=== PATIENT | male | born 1945 | race Caucasian/White ===

== ENCOUNTER 2017-06-16 16:07 | Inpatient (IN) ==
[2017-06-16] MEDS ORDERED: HYDROmorphone 2 MG/1 ML VIAL ONE (16:12)
[2017-06-16] MEDS ORDERED: ONDANSETRON 4 MG/2 ML VIAL IV STA (16:23)
[2017-06-16] MEDS ORDERED: ONDANSETRON 4 MG/2 ML VIAL ONE (16:30)
[2017-06-16] MEDS: HYDROmorphone 2 MG/1 ML VIAL IV PRN ×3 (16:34→16:38)
[2017-06-16 16:39] LABS: Apearance,Urine CLEAR (Clear); Bilirubin,Urine Negative (Negative); Blood, Urine Moderate mg/dL (Negative); Glucose,Urine (UA) 50 mg/dL (Negative); Ketones,Urine Negative (Negative); Mucus,Urine Occasional /LPF (Occasional); Nitrite,Urine Negative (Negative); Protein,Urine Negative; RBC,Urine 1 /HPF (0-4); Urine Color Straw (Yellow); Urine Specific Gravity 1.009 (1.001-1.035); Urine Urobilinogen < 2.0 EU/DL (0.2-1.0)
[2017-06-16 16:48] LABS: Basophils % 0.3 % (0.0-0.8); Eosinophils # 0.1 10*3/uL (0.0-0.87); Eosinophils % 0.9 % (0.00-10.9); Hematocrit 45.1 VOL% (42.0-52.0); Hemoglobin 15.7 GM/DL (14.0-18.0); Immature Granulocytes % 0.4 %; Immature Granulocytes Absolute 0.05 #; Lymphocytes % 18.1 % (21.2-54.2); Mean Corpuscular HGB Conc 34.8 GM/DL (32-36); Mean Corpuscular Hemoglobin 30 PG (27-34); Mean Corpuscular Volume 86.4 FL (87-102); Mean Platelet Volume 9.8 FL (9.6-12.0); Monocytes # 0.7 10*3/uL (0.11-0.8); Monocytes % 6.3 % (1.7-12.7); Neutrophils # 8.3 10*3/uL (1.4-7.4); Platelet Count 200 T/CUMM (130-400); Red Blood Count 5.22 MC/CUMM (3.8-5.5); Red Cell Distribution Width 14.1 % (9.3-17.3); White Blood Count 11.2 T/CUMM (4-12)
--- NOTE | 2017-06-16 16:58 | EKG Report ---
Stationary ECG Study [facility] ER Test Date: 06/16/2017 4:57:27 PM Pat Name: ADRIENNE FAROOQ Department: Room: 220 Gender: M Blog Writer: : 1945 Requested by: Julio Khan Order Number: [id number] Reading MD: MARIA ESTHER RENEE Intervals [place] Rate: 75 P: 59 KS: 189 QRS: 267 QRSD: 148 T: 46 QT: 421 QTc: 450 Interpretive Statements SINUS RHYTHM WITH OCCASIONAL VENTRICULAR PREMATURE COMPLEXES WITH OCCASIONAL SUPRAVENTRICULAR PREMATURE COMPLEXES MARKED RIGHT AXIS DEVIATION RIGHT BUNDLE BRANCH BLOCK Electronically Signed On 06-18-17 07:27:43 CDT by MARIA ESTHER RENEE [email or web address]
[2017-06-16 17:06] LABS: Albumin 3.1 G/DL (3.4-5.0); Bilirubin,Total 0.8 MG/DL (0.2-1.0); Calcium 8.8 MG/DL (8.5-10.1); Osmolality,Calculated 288.1 MOS/KG (273-304); Potassium 3.5 MMOL/L (3.5-5.1); Total Protein 6.2 G/DL (6.4-8.3)
[2017-06-16 17:08] LABS: Lactic Acid 2.4 MMOL/L (0.4-2.0)
--- NOTE | 2017-06-16 18:17 | Emergency Department Note ---
Ngozi Gonzáles Brittany, am scribing for, and in the presence of, Kwesi Lozoya MD 16:25. Darell Gonzáles Doug C, MD, personally performed the services described in this documentation, ascribed by Alyssa Melvin in my presence, and it is both accurate and complete . Arrival - Arrival Chief Complaint: Abdominal / Flank Pain Stated Complaint: abd pain ED Nursing Triage Note: middle abd pain that sunday with n/v. Mode of Arrival: Stretcher Limitations: No Limitations Source: Patient - History of Present Illness HPI Narrative: Patient 72-year-old white male presents emergency room complaining of severe lower abdominal pain that started this morning. Patient does have a prior history of kidney stones but states this is different from his prior kidney stones. Patient states he has been having some abdominal pain off and on since Sunday with nausea and vomiting but the pain this morning became intense. Patient's not had any fever or chills and he denies any urinary symptoms. He has not noticed any hematuria and has not had any diarrhea or blood in his stool. It is very difficult to get a history from the patient and he was constantly screaming when he arrived to the emergency room. Onset (ago): day(s) (Started 5 days ago) Consistency: constant Severity: moderate Allergies/Adverse Reactions: Allergies Allergy/AdvReac Type Severity Reaction Status Date / Time No Known Allergies Allergy Unverified 06/14/17 11:05 Home Medications: Home Medications Medication Instructions Recorded Confirmed Type Amitriptyline [Elavil] 25 mg PO BEDTIME 03/04/17 06/16/17 History Aspirin EC Tab 81 mg PO DAILY 03/04/17 06/16/17 History Cholecalciferol (Vitamin D3) 2,000 unit PO DAILY 03/04/17 06/16/17 History [Vitamin D3] Cilostazol 50 mg PO BID 03/04/17 06/16/17 History Esomeprazole Magnesium 40 mg PO DAILY 03/04/17 06/16/17 History [Esomeprazole] Glimepiride 4 mg PO DAILY 03/04/17 06/16/17 History Irbesartan 150 mg PO DAILY 03/04/17 06/16/17 History NIFEdipine [Nifedipine ER] 30 mg PO BEDTIME 03/04/17 06/16/17 History Thyroid [[place] Thyroid] 60 mg PO DAILY 03/04/17 06/16/17 History sitaGLIPtin [Januvia] 100 mg PO DAILY 03/04/17 06/16/17 History Hydrocortisone (Anusol-Hc) Sup 25 mg RECTAL BID #12 supp 06/14/17 06/16/17 Rx [ANUSOL HC SUPP (hydrocortisone)] Metoprolol Tartrate 50 mg PO BID #60 tablet 06/14/17 06/16/17 Rx Review of System - Review of System 12 point system: reviewed and no additional remarkable complaints except as stated - Review of System Constitutional: Absent: chills, fever Eyes: Absent: pain, other Cardiovascular: Absent: chest pain, palpitations Gastrointestinal: Present: abdominal pain (Mid abdominal pain/ pain over the bladder ), nausea, vomiting Genitourinary male: Absent: urgency, dysuria, hematuria Musculoskeletal: Absent: back pain, neck pain Skin: Absent: rash, lesions Neurological: Absent: weakness, numbness Psychiatric: Absent: anxiety, depression Endocrine: Absent: fatigue Hematological/Lymphatic: Absent: easy bleeding, easy bruising Medical,Surgical,& Family Hx - Medical History Cardio: History of: CAD (Dr Elam), Hypertension, [place] Endocrine: History of: Diabetes Mellitus (NIDDM) Genitourinary: History of: Kidney Stones, Genitourinary Cancer (Prostate Dr Lozoya) Musculoskeletal: History of: Back/Neck Problems - Surgical History Cardiac Surgeries: Sugical HX of: Cardiac Catheterization (stent) Reproductive Surgeries: Surgical HX of;: Genitourinary Surgery (Cryo on Prostate ) Orthopedic Surgeries: Surgical HX of;: Spinal Surgery - Family History Family History: noncontributory - Social History Smoking Status: Current every day smoker Exam Vital Signs: Vital Signs Temperature 98.6 F 06/16/17 16:13 Pulse Rate 84 06/16/17 16:13 Respiratory Rate 28 H 06/16/17 16:13 Blood Pressure 180/125 06/16/17 16:13 O2 Sat by Pulse Oximetry 97 06/16/17 16:13 - General General appearance: alert, in distress (Patient screaming in discomfort) - Head Head exam: Present: atraumatic, normocephalic, normal inspection - Eye Eye exam: Present: normal appearance, PERRL, EOMI, other (Ectropion of left lower lid). Absent: scleral icterus, conjunctival injection, nystagmus, miosis , mydriasis, periorbital swelling, periorbital tenderness - ENT ENT exam: Present: normal exam, normal oropharynx, mucous membranes moist - Neck Neck exam: Present: normal inspection, full ROM, trachea midline. Absent: tenderness, meningismus, lymphadenopathy, thyromegaly - Chest Chest inspection: Present: normal inspection, symmetric chest wall rise. Absent : tenderness, rash, abscess - Respiratory Respiratory exam: Present: normal lung sounds bilaterally. Absent: prolonged expiratory phase, rales, respiratory distress, rhonchi, stridor, wheezes - Cardiovascular Cardiovascular exam: Present: regular rate, normal rhythm, normal heart sounds. Absent: murmur, rubs, gallop, clicks, JVD - Abdominal Exam Abdominal exam: Present: soft, distention (Bladder distention ), tenderness ( Tender over the bladder ), normal bowel sounds. Absent: guarding, rebound, rigidity - Rectal Exam Rectal exam: Present: deferred - Extremities Exam Extremities exam: Present: normal inspection, full ROM, normal capillary refill. Absent: tenderness, pedal edema, joint swelling, calf tenderness - Back Exam Back exam: Present: normal inspection, full ROM. Absent: tenderness, muscle spasm, rashes - Neurological Exam Neurological exam: Present: alert, oriented X3, CN II-XII intact. Absent: motor sensory deficit - Psychiatric Psychiatric exam: Present: normal affect, normal mood. Absent: depressed, agitated, anxious, flat affect, manic - Skin Skin exam: Present: warm, dry, intact, normal color. Absent: rash, cyanosis, diaphoresis, erythema, pallor, mottled Course Course Narrative: Patient's clinical history, physical findings, laboratory and CT findings were discussed with danial who is covering the hospitalist service. She will arrange for the patient to be seen in the emergency room and evaluate for admission Results - Labs CBC & BMP: 06/16/17 16:34 06/16/17 16:34 Lab Results: I have reviewed the patients labs - Diagnostic Findings Procedure: CT Abdomen and Pelvis: report reviewed by me (No ureterolithiasis seen. There is no evidence of obstruction or abdominal aortic dissection.) Disposition Clinical Impression: Continuous severe abdominal pain Case discussed with: patient Disposition: Still a Patient Condition: Guarded Time of Disposition: 18:17
--- NOTE | 2017-06-16 18:51 | CT Report ---
History: Severe lower abdominal pain. Intermittent nausea and vomiting Date: 06/16/2017 Study: CT abdomen and pelvis with IV contrast Comparison exam: Multiple studies, including the most recent noncontrast CT abdomen and pelvis of March 04, 2017 Technique: Spiral CT sections were obtained from the lung bases to the pubic symphysis following 100 mL Omnipaque [address] exam was performed using one or more of the following dose reduction techniques: Automated exposure control, adjustment of the mA and/or kV according to patient size, or use of iterative reconstruction technique. CT abdomen: There is some mild dependent atelectasis in the lower lungs. There is no gross pleural or pericardial effusion. There is mild diffuse fatty infiltration of the liver. There is a focal area of transient increased triangular enhancement inferiorly in the posterior segment of the right lobe the liver at 16 mm diameter. This was present on the September 14, 2016 contrast study and is unchanged. The spleen, pancreas, bile ducts, and fluid-filled gallbladder are unremarkable. There is a 4.1 cm left adrenal mass containing globules of fat density without change. There is bilateral renal excretion without hydronephrosis. There is no gross radiopaque renal or ureteral stone. There is no hydronephrosis. There are rounded low-density renal cysts associated with either kidney as before. These in general appear to be simple in nature. There is a class II F Bosniak cyst measuring 10 mm in the posterior lateral mid to lower right kidney. There is some mild ectasia of the abdominal aorta without james aneurysm. There is no evidence of pneumoperitoneum. There is some mild thickening of the wall of the descending and sigmoid colon in a region of numerous scattered diverticuli. Near the descending and sigmoid colon junction, there is slight increased haziness in the pericolonic fat. Low-grade diverticulitis is suspected. The appendix is identified and appears normal. There is no evidence of appendicitis. CT pelvis: A Castrejon catheter is positioned with its balloon in the lumen of urinary bladder. There are small fat-containing inguinal hernias bilaterally. There is mild to moderate lumbar spondylosis. Impression: There is evidence of low-grade diverticulitis of the left colon without abscess or perforation. No radiopaque renal or ureteral stone or definite acute process otherwise Bilateral renal cysts for which nonemergent follow-up renal ultrasound is recommended Stable left adrenal myelolipoma Transient focal area of increased enhancement in the right lobe of the liver without definite associated mass lesion, stable compared to the previous study. This may represent a Pawel PROCEDURE INTERPRETED AT [facility] DEPARTMENT OF RADIOLOGY Final Report Signed by: Dr. Ann-Marie Jolly
--- NOTE | 2017-06-16 19:09 | XRay Report ---
History: Dyspnea Date: 06/16/2017 Study: Chest x-ray AP portable Comparison exam: February 10, 2014 The cardiac silhouette is upper normal in size. There is no mediastinal mass. The pulmonary vasculature is not engorged. The lungs and pleural spaces are generally clear. Osseous structures are unremarkable except for some mild thoracic spondylosis. Impression: No acute cardiopulmonary process PROCEDURE INTERPRETED AT [facility] DEPARTMENT OF RADIOLOGY Final Report Signed by: Dr. Ann-Marie Jolly
--- NOTE | 2017-06-16 19:15 | Hospitalist History & Physical ---
Assessment and Plan (1) Continuous severe abdominal pain Status: Acute Assessment and plan: Admit patient to monitored bed. Pt. has history of kidney stones. Prn pain meds. Abd/pelv ct performed. No acute abd. Renal cysts found. Current Visit: Yes (2) Diabetes Status: Acute Assessment and plan: Accuchecks achs. SSI. Hgb A1c in am. Restart two of the oral agents. Current Visit: Yes (3) Hypertension Status: Chronic Assessment and plan: Restart home medications. Monitor closely Current Visit: No (4) Prostate cancer Status: Resolved Assessment and plan: Pt. seen by Dr. Lozoya. Current Visit: Yes History of Present Illness Chief complaint: Abdominal pain History of present illness: Mr. Velasquez is a 72 year old white male with a history of hypertension, CAD, ID with 2 stents, diabetes, kidney stones, gi bleeding, prostate cancer, and back/ neck problems that presented to the ED today for further evaluation of severe lower abdominal pain started this morning. Patient stated that he been having abdominal pain since Sunday. Pt. also reports nausea and vomiting in association with the pain. Pt.'s is present at the bedside and provides much of the history for the patient. Pt. denies fever, chills, or chest pain. Pt. states that he has not any problem voiding until this morning. Prior to that , pt had not noted any blood in urine. He did state he saw blood in stool on but that this is from a hemorrhoid. Pt.'s adds that they were seen in the ED on for n/v but was released with suppository. (Chart review after patient interview from 's admit reveals cardiology was consulted at that time for polymorphic PVCs. Pt. was to bulk picker monitor for further eval). In ED, pt was noted to be hypertensive with elevated lactic acid of 2.4. CT of abd/pel revealed low grade diverticulitis of left colon, bilateral renal cysts were also seen. Pt. will be admitted to the hospitalist service for further eval and treatment. Home Medications Medication Instructions Recorded Confirmed Type Amitriptyline [Elavil] 25 mg PO BEDTIME 03/04/17 06/16/17 History Aspirin EC Tab 81 mg PO DAILY 03/04/17 06/16/17 History Cholecalciferol (Vitamin D3) 2,000 unit PO DAILY 03/04/17 06/16/17 History [Vitamin D3] Cilostazol 50 mg PO BID 03/04/17 06/16/17 History Esomeprazole Magnesium 40 mg PO DAILY 03/04/17 06/16/17 History [Esomeprazole] Glimepiride 4 mg PO DAILY 03/04/17 06/16/17 History Irbesartan 150 mg PO DAILY 03/04/17 06/16/17 History NIFEdipine [Nifedipine ER] 30 mg PO BEDTIME 03/04/17 06/16/17 History Thyroid [[place] Thyroid] 60 mg PO DAILY 03/04/17 06/16/17 History sitaGLIPtin [Januvia] 100 mg PO DAILY 03/04/17 06/16/17 History Hydrocortisone (Anusol-Hc) Sup 25 mg RECTAL BID #12 supp 06/14/17 06/16/17 Rx [ANUSOL HC SUPP (hydrocortisone)] Metoprolol Tartrate 50 mg PO BID #60 tablet 06/14/17 06/16/17 Rx Allergies Allergy/AdvReac Type Severity Reaction Status Date / Time No Known Allergies Allergy Unverified 06/14/17 11:05 Medical,Surgical,& Family Hx - Medical History Cardio: History of: CAD (Dr Elam), Hypertension, [place] Endocrine: History of: Diabetes Mellitus (NIDDM) Genitourinary: History of: Kidney Stones, Genitourinary Cancer (Prostate Dr Lozoya) Musculoskeletal: History of: Back/Neck Problems - Surgical History Cardiac Surgeries: Sugical HX of: Cardiac Catheterization (stent) Reproductive Surgeries: Surgical HX of;: Genitourinary Surgery (Cryo on Prostate ) Orthopedic Surgeries: Surgical HX of;: Spinal Surgery - Social History Smoking Status: Current every day smoker Marital Status: Lives With:: Spouse Functional capacity: independent ambulation - Constitutional Constitutional: Absent: chills, fever(s) - EENT Eyes: Present: loss of vision Ears: Present: decreased hearing Nose, mouth and throat: Absent: headache(s) - Cardiovascular Cardiovascular: Absent: dyspnea, edema - Gastrointestinal Gastrointestinal: Present: abdominal pain, nausea, vomiting. Absent: change in bowel habits - Genitourinary Genitourinary: Present: difficulty urinating - Neurological Neurological: Absent: confusion, dizziness Exam - Constitutional Vitals: Period Temp Pulse Resp BP Sys/Javed Pulse Ox Last 24 Hr 98.6 F 84 28 180/125 97 General appearance: normal weight, no acute distress - Head Head exam: Present: normal inspection, normocephalic - Eye Eye exam: Present: EOMI, other (ectropion of left lower lid) Pupils: Present: CHERYL - Neck Neck exam: Present: normal inspection - Respiratory Respiratory exam: Present: clear to auscultation bilaterally. Absent: wheezes - Cardiovascular Cardiovascular exam: Present: regular rate and rhythm - GI/Abdominal GI/Abdominal exam: Present: normal bowel sounds, soft. Absent: tenderness - Extremities Exam Extremities exam: Present: normal capillary refill, full ROM. Absent: edema - Neurological Exam Neurological exam: Present: alert, oriented X3 - Psychiatric Psychiatric exam: Present: normal affect, normal mood - Skin Skin exam: Present: normal color, warm, dry Results - Labs CBC & BMP: 06/16/17 16:34 06/16/17 16:34 Lab Results: I have reviewed the past 24 hour labs
[2017-06-16] MEDS ORDERED: ACETAMINOPHEN 325 MG TABLET PO PRN (20:12)
[2017-06-16] MEDS ORDERED: ONDANSETRON 4 MG/2 ML VIAL IV PRN (20:12)
[2017-06-16] MEDS ORDERED: DEXTROSE 50% 25 GM/50 ML VIAL IV PRN (20:12)
[2017-06-16] MEDS ORDERED: GLUCAGON 1 MG VIAL IM PRN (20:12)
[2017-06-16] MEDS: MORPHINE 10 MG/1 ML VIAL IV PRN (20:35)
[2017-06-16] MEDS: SODIUM CHLORIDE 0.9% 1,000 ML IV SCH (21:25)
[2017-06-16] MEDS: INSULIN LISPRO 100 UNIT/ML SUBCUT SCH (21:53)
[2017-06-16] MEDS: METOPROLOL TARTRATE 50 MG TABLET PO SCH (21:53)
[2017-06-16] MEDS: CILOSTAZOL 50 MG TABLET PO SCH (21:53)
[2017-06-16] MEDS: AMITRIPTYLINE 25 MG TABLET PO SCH (21:53)
[2017-06-17] MEDS: MORPHINE 10 MG/1 ML VIAL IV PRN (00:59)
[2017-06-17 04:50] LABS: Basophils % 0.4 % (0.0-0.8); Eosinophils % 0.1 % (0.00-10.9); Hematocrit 52.1 VOL% (42.0-52.0); Immature Granulocytes % 0.3 %; Immature Granulocytes Absolute 0.03 #; Lymphocytes # 1.4 10*3/uL (1.4-4.0); Lymphocytes % 12.7 % (21.2-54.2); Mean Corpuscular HGB Conc 34.5 GM/DL (32-36); Mean Corpuscular Hemoglobin 30 PG (27-34); Mean Corpuscular Volume 86.5 FL (87-102); Mean Platelet Volume 9.6 FL (9.6-12.0); Monocytes # 0.9 10*3/uL (0.11-0.8); Monocytes % 8.4 % (1.7-12.7); Neutrophils # 8.7 10*3/uL (1.4-7.4); Neutrophils % 78.1 % (38.7-73.9); Platelet Count 200 T/CUMM (130-400); Red Blood Count 6.02 MC/CUMM (3.8-5.5); Red Cell Distribution Width 14.1 % (9.3-17.3); White Blood Count 11.1 T/CUMM (4-12)
[2017-06-17 05:30] LABS: Calcium 8.8 MG/DL (8.5-10.1); Magnesium 1.9 MG/DL (1.8-2.4); Osmolality,Calculated 284.4 MOS/KG (273-304); Potassium 3.8 MMOL/L (3.5-5.1); Risk Ratio 4.59; Thyroid Stimulating Hormone 1.56 uIU/ml (0.358-3.74); VLDL CHOLESTEROL 25.8 MG/DL
[2017-06-17] MEDS: SODIUM CHLORIDE 0.9% 1,000 ML IV SCH ×2 (07:37→08:32)
[2017-06-17] MEDS: PANTOPRAZOLE 40 MG TABLET PO SCH (08:07)
[2017-06-17] MEDS: CILOSTAZOL 50 MG TABLET PO SCH ×2 (08:07→21:27)
[2017-06-17] MEDS: THYROID 60 MG TABLET PO SCH (08:07)
[2017-06-17] MEDS: METOPROLOL TARTRATE 50 MG TABLET PO SCH ×2 (08:07→21:27)
[2017-06-17] MEDS: INSULIN LISPRO 100 UNIT/ML SUBCUT SCH ×4 (08:07→21:29)
[2017-06-17] MEDS: IRBESARTAN 150 MG TABLET PO SCH (08:07)
[2017-06-17] MEDS: sitaGLIPtin 100 MG TABLET PO SCH (08:07)
[2017-06-17] MEDS: GLIMEPIRIDE 4 MG TABLET PO SCH (08:07)
[2017-06-17] MEDS ORDERED: ASPIRIN EC 81 MG TABLET PO SCH (09:00)
--- NOTE | 2017-06-17 10:27 | Hospitalist Progress Note ---
Assessment and Plan (1) Continuous severe abdominal pain Status: Acute Assessment and plan: CT abd showed a evidence of low-grade diverticulitis of the left colon without abscess or perforation. Plan Continue with pain meds, anti emetics, IVF will start IV cipro and flagyl stool studies GI consult Current Visit: Yes (2) Bloody stool Status: Acute Assessment and plan: will hold aspirin for now monitor cbc GI consult Current Visit: Yes (3) Hypertension Status: Chronic Assessment and plan: stable Current Visit: No (4) Prostate cancer Status: Resolved Assessment and plan: Pt. seen by Dr. Lozoya. Current Visit: Yes (5) Diabetes Status: Acute Assessment and plan: 1c-6.6 continue with current regime Current Visit: Yes Hospitalist: Subjective Interval history: Patient was sleeping. Nursing staff reports that patient had a bout of bloody stool this am. Exam - Constitutional Vitals: Period Temp Pulse Resp BP Sys/Javed Pulse Ox Last 24 Hr 97 F-98.6 F 69-91 16-28 137-183/81-125 93-97 General appearance: no acute distress - Head Head exam: Present: normal inspection - Respiratory Respiratory exam: Present: clear to auscultation bilaterally - Cardiovascular Cardiovascular exam: Present: regular rate and rhythm - GI/Abdominal GI/Abdominal exam: Present: tenderness - Extremities Exam Extremities exam: Present: normal inspection Results - Labs CBC & BMP: 06/17/17 04:28 06/17/17 04:29 Lab Results: I have reviewed the past 24 hour labs
[2017-06-17] MEDS: CIPROFLOXACIN INJ 200 MG in PREMIX 1 EACH IV SCH (11:48)
[2017-06-17] MEDS: metroNIDAZOLE INJ 500 MG in PREMIX 1 EACH IV SCH ×2 (12:54→21:28)
--- NOTE | 2017-06-17 13:25 | Gastrointestinal Consult Note ---
Assessment and Plan - Time spent with patient Time spent with patient: Greater than 30 minutes (1) Colitis Status: Acute Current Visit: Yes (2) Bloody diarrhea Status: Acute Assessment and plan: PLEASE NOTE -- automatic citation of patient information is unavoidable in this electronic note. I have made a reasonable effort to review the information cited , but it is not a part of my evaluation, impression, or recommendation unless specifically discussed in the dictated text that follows. As well, voice recognition software was used in the creation of this clinical note. Reasonable effort was made to identify and correct gross errors. Despite proofreading, errors in rural route carrier may be present, including nonsense verbiage at times. If you encounter such an error, please contact me at for discussion and correction. -- Dr. Levy Chief complaint/Consult Question: maroon watery diarrhea Consult requested by: Riley History of present illness: This is a new patient, a 72-year-old man with prostate cancer, presenting to the ER on June 16, 2017 for suprapubic pain and left lower quadrant abdominal pain, associated with maroon diarrhea, stool urgency, and then developed secondary nausea, vomiting. Feeling of profound fullness in his bladder in the ER with Castrejon relieved 1600 mls. [place]its [place], but regularly drinks well water. States that he has had this intermittent suprapubic pain, just prior to episodes of diarrhea, with mixed blood during these episodes, usually lasting 2-3 days, which he has had over the course of his entire life. Has previously refused colonoscopy due to the fact that he had 3 friends with perforations. He reports diffuse arthralgias, as well as shortness of breath on exertion with myalgias. States prior cardiac workup was negative. States that "doctors are always trying to look at things, but can never find out what is wrong." Denies nonhealing skin ulcer. Notable left eye redness and abnormality, states it is been that way for 1 year, previously seen by ophtho. No fevers and chills. He takes Aleve regularly, in the past took BC powder regularly. Patient with prior prostate cancer reports being treated 4 -5 years ago with cryotherapy, unclear repercussions to the rectum. Patient denies prior radiation. No autoimmune disease known in the family. Reports his mother had multiple types of cancer, father with leukemia. Hemoglobin 15.7 on admission, 18 today, platelets of 200, normal BUN to creatinine ratio, initially work lactic acid of 2.4, normal liver associated enzymes, blood in the urine. Stool with moderate leukocytes. CT abdomen with evidence of low-grade diverticulitis in the left colon without abscess or perforation. GI review of systems included: heartburn, regurgitation, early satiety, dysphagia, odynophagia, abdominal pain, nausea, vomiting, hematemesis, weight loss, weight gain, fever, chills, fatigue, decreased appetite, diarrhea, constipation, hematochezia, melena, bloating, malodorous flatus, anal pain, or NSAID use, and was negative except as noted above. REVIEW OF SYSTEMS: Complete other review of systems negative except as noted in the HPI Outpatient medications: Personally reviewed Inpatient medications: Personally reviewed, significant for Cipro 500 mg twice daily IV -Flagyl 500 mg every 8 hour IV Protonix 40 mg p.o. daily Past Medical History: Personally reviewed and as documented in the chart, additionally Significant for tic fever, reports that his global symptoms of weakness and arthralgias improved in the past with treatment of acute tic fever, but symptoms returned after 3 months that have not resolved Prior EGD with dilation Social history: Current smoking tobacco, 1-2 packs per day, entire life. Negative alcohol. is in the room and helps provide history. Family history: Mother with "every cancer known to man", father with leukemia PHYSICAL EXAMINATION: CONSTITUTIONAL: Vital signs reviewed as documented above. In no acute distress. Nontoxic-appearing. EYES: Anicteric conjunctiva. Extra-ocular movements are intact and symmetric. EARS: Able to hear speech at conversational volume level, no external trauma/ masses. MOUTH: No oral/mouth lesions or ulcers. NECK: No masses or crepitus. Thyroid is of normal size and symmetric. HEART: Regular rate, regular rhythm LUNGS: Increased expiratory phase greater than increased inspiratory phase, no clear wheezing. No increased work of breathing or accessory muscle use. GI/ABDOMEN: Nonobese abdomen, soft, tender to palpation diffusely, most significant in the left lower quadrant, with some referred pain from right lower quadrant to the left. No rebound tenderness, nondistended, no rigidity. No palpable mass. No appreciable hepatosplenomegaly. SKIN: No rash on face, arms, or hands. No palpable lesions MUSCULOSKELETAL: Laying comfortably in bed muscle tone appears normal without any abnormal movements. PSYCH: Normal affect. Alert and oriented to person, place, and time. Somewhat suspicious of physicians. Laboratory: Personally reviewed Significant for normal to high hemoglobin, normal INR, normal BUN to creatinine ratio, creatinine 1.3 Radiology: Personally reviewed reports and images CT abdomen and pelvis with IV contrast from 06/16/2017 Significant for fatty infiltration of the liver. Unchanged enhancement in the posterior segment of the right lobe from September 2016. Spleen pancreas bile ducts and fluid-filled gallbladder unremarkable. 4 cm left adrenal mass contains fatty globules, unchanged. Bilateral renal excretion without hydronephrosis. No gross radiopaque renal or ureteral stone. No hydronephrosis. Rounded low-density renal cysts associated with either kidney as before. Mild ectasia of the abdominal aorta without aneurysm. Mild thickening of the wall of the descending and sigmoid colon in the region of numerous scattered diverticuli. Near the descending and sigmoid colon junction there is slight increased haziness in the pericolonic fat. Low-grade diverticulitis is suspected. Appendix appears normal. Small fat-containing inguinal hernias bilaterally. Assessments: #Left-sided colitis. Differential diagnosis includes infectious colitis, diverticulitis, ulcerative colitis #Lower GI bleeding. Intermittent chronic, now reporting much more significant than prior. Personally seen, with significant portion of blood per stool ratio. Differential diagnosis includes infectious colitis, ulcerative colitis which would not normally bleed this much, rectal hemorrhage from prior prostate treatment, bleeding malignancy or mass or advanced adenoma in this patient who has never undergone colonoscopy. #Other specified counseling -- The patient was seen for greater than 30 minutes. The patient was counseled for greater than 50% of this time regarding differential diagnosis, likely diagnosis, diagnostic and therapeutic alternatives, risks/benefits/alternatives of medications and procedures, and plan of care generally. The patient expressed understanding and wishes to proceed. Recommendations: -It is reasonable to continue Cipro and Flagyl for presumed infectious colitis or diverticulitis 10-14 days monitor for clinical worsening for rare type of Salmonella that could be worsened with antibiotics -Recommend stool studies including C. difficile, stool culture, ova and parasite , specifically looking for microsporidia and isospora with well water infection (ordered), Campylobacter, Yersinia, Enterobacter -Continue to monitor blood output, hemoglobin, resuscitate as needed, transfuse for hemoglobin less than 8, and as needed acute colonoscopy if symptoms do not improve over the next day or few. -If patient improves during hospitalization, and does not need acute endoscopy, outpatient GI follow-up in 6-8 weeks, consider colonoscopy -I had a lengthy discussion with the patient today regarding potential indications for colonoscopy during this admission and after the fact, particularly concerning the possibility of chronic ulcerative colitis for this pattern of waxing and waning symptoms over many years, as well as possible colon cancer without any evidence for metastasis which would be treatable, as well as rectal/prostate evaluation. We also discussed the option for flexible sigmoidoscopy, and relative risks of the procedures. He is still very hesitant but agrees that the current problem is within his intestine and colon, which he indicates has been the largest jamarcus for him agreeing to medical procedures in the past. He understands that Dr. Morelos will return tomorrow to reassess and further discuss. Dalila Levy MD, MPH STAFF MEDICAL BILLER/CODER Current Visit: Yes History of Present Illness History of present illness: Mr. Velasquez is a 72 year old male Home Medications Medication Instructions Recorded Confirmed Type Amitriptyline [Elavil] 25 mg PO BEDTIME 03/04/17 06/16/17 History Aspirin EC Tab 81 mg PO DAILY 03/04/17 06/16/17 History Cholecalciferol (Vitamin D3) 2,000 unit PO DAILY 03/04/17 06/16/17 History [Vitamin D3] Cilostazol 50 mg PO BID 03/04/17 06/16/17 History Esomeprazole Magnesium 40 mg PO DAILY 03/04/17 06/16/17 History [Esomeprazole] Glimepiride 4 mg PO DAILY 03/04/17 06/16/17 History Irbesartan 150 mg PO DAILY 03/04/17 06/16/17 History NIFEdipine [Nifedipine ER] 30 mg PO BEDTIME 03/04/17 06/16/17 History Thyroid [Pimento Thyroid] 60 mg PO DAILY 03/04/17 06/16/17 History sitaGLIPtin [Januvia] 100 mg PO DAILY 03/04/17 06/16/17 History Hydrocortisone (Anusol-Hc) Sup 25 mg RECTAL BID #12 supp 06/14/17 06/16/17 Rx [ANUSOL HC SUPP (hydrocortisone)] Metoprolol Tartrate 50 mg PO BID #60 tablet 06/14/17 06/16/17 Rx Allergies Allergy/AdvReac Type Severity Reaction Status Date / Time No Known Allergies Allergy Unverified 06/14/17 11:05 Medical,Surgical,& Family Hx - Medical History Cardio: History of: CAD (Dr Elam), Hypertension, MS Endocrine: History of: Diabetes Mellitus (NIDDM), Thyroid Disorder Genitourinary: History of: Kidney Stones, Genitourinary Cancer (Prostate Dr Lozoya) Gastrointestinal: History of: Diverticulitis/ Diverticulosis Musculoskeletal: History of: Back/Neck Problems - Surgical History Cardiac Surgeries: Sugical HX of: Cardiac Catheterization (stent) Reproductive Surgeries: Surgical HX of;: Genitourinary Surgery (Cryo on Prostate ) Orthopedic Surgeries: Surgical HX of;: Spinal Surgery - Family History Family History: Reports;: Family Hypertension - Social History Smoking Status: Current every day smoker Frequency of Alcohol Use: None Type of Drug Use: None Exam - Constitutional Vitals: Period Temp Pulse Resp BP Sys/Javed Pulse Ox Last 24 Hr 97 F-98.6 F 66-91 16-28 122-183/72-125 91-97 Results - Labs CBC & BMP: 06/17/17 04:28 06/17/17 04:29
[2017-06-17] MEDS: AMITRIPTYLINE 25 MG TABLET PO SCH (21:27)
[2017-06-18] MEDS: CIPROFLOXACIN INJ 200 MG in PREMIX 1 EACH IV SCH ×3 (00:09→21:24)
[2017-06-18] MEDS: SODIUM CHLORIDE 0.9% 1,000 ML IV SCH ×3 (00:12→17:05)
[2017-06-18] MEDS: metroNIDAZOLE INJ 500 MG in PREMIX 1 EACH IV SCH ×3 (04:20→20:09)
[2017-06-18 05:32] LABS: Basophils % 0.3 % (0.0-0.8); Eosinophils # 0.2 10*3/uL (0.0-0.87); Eosinophils % 1.5 % (0.00-10.9); Hematocrit 44.9 VOL% (42.0-52.0); Hemoglobin 15.6 GM/DL (14.0-18.0); Immature Granulocytes % 0.3 %; Immature Granulocytes Absolute 0.03 #; Lymphocytes % 29.3 % (21.2-54.2); Mean Corpuscular HGB Conc 34.7 GM/DL (32-36); Mean Corpuscular Hemoglobin 30 PG (27-34); Mean Corpuscular Volume 85.7 FL (87-102); Mean Platelet Volume 9.7 FL (9.6-12.0); Monocytes # 0.9 10*3/uL (0.11-0.8); Monocytes % 8.8 % (1.7-12.7); Neutrophils # 6.2 10*3/uL (1.4-7.4); Neutrophils % 59.8 % (38.7-73.9); Platelet Count 175 T/CUMM (130-400); Red Blood Count 5.24 MC/CUMM (3.8-5.5); White Blood Count 10.3 T/CUMM (4-12)
[2017-06-18 05:59] LABS: Calcium 7.8 MG/DL (8.5-10.1); Osmolality,Calculated 277.5 MOS/KG (273-304); Potassium 3.2 MMOL/L (3.5-5.1)
[2017-06-18 06:02] LABS: Alanine Aminotransferase < 6 U/L (16-61); Albumin 2.7 G/DL (3.4-5.0); Alkaline Phosphatase 60 U/L (45-117); Aspartate Amino Transferase 8 U/L (0-37); Blood Urea Nitrogen 20 MG/DL (7-18); Calcium 7.8 MG/DL (8.5-10.1); Glucose 78 MG/DL (74-106); Osmolality,Calculated 278.5 MOS/KG (273-304); Potassium 3.2 MMOL/L (3.5-5.1); Sodium 139 MMOL/L (136-145); Total Protein 5.3 G/DL (6.4-8.3)
[2017-06-18] MEDS: INSULIN LISPRO 100 UNIT/ML SUBCUT SCH ×4 (07:43→21:26)
[2017-06-18] MEDS: CILOSTAZOL 50 MG TABLET PO SCH ×2 (08:44→20:10)
[2017-06-18] MEDS: sitaGLIPtin 100 MG TABLET PO SCH (08:44)
[2017-06-18] MEDS: THYROID 60 MG TABLET PO SCH (08:44)
[2017-06-18] MEDS: METOPROLOL TARTRATE 50 MG TABLET PO SCH ×2 (08:44→20:10)
[2017-06-18] MEDS: IRBESARTAN 150 MG TABLET PO SCH (08:44)
[2017-06-18] MEDS: GLIMEPIRIDE 4 MG TABLET PO SCH (08:45)
[2017-06-18] MEDS: PANTOPRAZOLE 40 MG TABLET PO SCH (08:45)
--- NOTE | 2017-06-18 09:51 | Hospitalist Progress Note ---
Assessment and Plan (1) Continuous severe abdominal pain Status: Acute Assessment and plan: CT abd showed a evidence of low-grade diverticulitis of the left colon without abscess or perforation.Stool studies showed moderate WBC, 4+ blood and no enteric pathogens and negative C.difficile. Follow GI consult. Plan Continue with pain meds, anti emetics, IVF continue IV cipro and flagyl hopefully dc in am Current Visit: Yes (2) Bloody stool Status: Acute Assessment and plan: will continue to hold aspirin for now. H/H is stable monitor cbc most likely outpt endoscopy. Current Visit: Yes (3) Hypertension Status: Chronic Assessment and plan: stable Current Visit: No (4) Prostate cancer Status: Resolved Assessment and plan: Pt. seen by Dr. Lozoya. Current Visit: Yes (5) Diabetes Status: Acute Assessment and plan: [id number] continue with current regime Current Visit: Yes (6) Diverticulitis Status: Acute Assessment and plan: CT showed a low-grade diverticulitis Plan continue IV antibiotics Current Visit: Yes (7) Hypokalemia Status: Acute Assessment and plan: will replete,bmp in am Current Visit: Yes Hospitalist: Subjective Interval history: Patient states he feels much better. He ate his breakfast with no problems though he is still having some minimal abdominal pain. Exam - Constitutional Vitals: Period Temp Pulse Resp BP Sys/Javed Pulse Ox Last 24 Hr 96.7 F-98.6 F 56-71 18-20 107-155/55-74 91-98 General appearance: no acute distress - Head Head exam: Present: normal inspection - Respiratory Respiratory exam: Present: clear to auscultation bilaterally - Cardiovascular Cardiovascular exam: Present: regular rate and rhythm - GI/Abdominal GI/Abdominal exam: Present: normal bowel sounds, other (mild tenderness) - Extremities Exam Extremities exam: Present: normal inspection Results - Labs CBC & BMP: 06/18/17 05:14 06/18/17 05:14 Lab Results: I have reviewed the past 24 hour labs
[2017-06-18] MEDS: POTASSIUM CHLORIDE 20 MEQ/15 ML UDCUP PO SCH (10:46)
--- NOTE | 2017-06-18 11:09 | Gastrointestinal Progress Note ---
<ArelyMercedes Filomena - Last Filed: 06/18/17 11:06> Assessment and Plan (1) Colitis Status: Acute Assessment and plan: 06/18-improvements in abdominal pain as well as less frequent diarrhea. Small amount of dark red blood in stool today improved from onset. H&H stable at 15/ 44 without blood transfusion required. Tolerating diet. Plan an addendum to follow by Dr. Morelos. Current Visit: Yes Gastroenterology - PN: Subj Interval history: CC: Abd pain, bloody diarrhea Pt is seen awake and alert. States he is feeling some better today than on admission. Pt states that he is having very small amount of dark red blood noted in his stools at this time. Last one was noted this morning however he states this is an improvement from admission. He states that his abdominal pain is improved as well. Denies any nausea or vomiting at this time. Patient was noted to have 4+ positive stools for blood however the stool cultures were negative. He states that his diarrhea is improved and is much less frequent with only 2 very small stools this morning. CT of abdomen with contrast on admission was noted to show a low-grade diverticulitis of the left colon without abscess or perforation. Patient states that he has never had a colonoscopy in the past and does not wish to pursue this due to personal reasons. He does have a prior history of prostate cancer. He is tolerating a cardiac diet at this time. ROS: Denies shortness of breath or chest pain Exam (Progress Note) - Constitutional Vitals: Period Temp Pulse Resp BP Sys/Javed Pulse Ox Last 24 Hr 96.7 F-98.6 F 56-71 18-20 107-155/55-74 91-98 General appearance: normal weight, no acute distress - Head Head exam: Present: normal inspection, normocephalic - Eye Eye exam: Present: other (Lids and conjunctivae are unremarkable). Absent: scleral icterus - ENT ENT exam: Present: normal exam, normal oropharynx - Neck Neck exam: Present: normal inspection - Respiratory Respiratory exam: Present: clear to auscultation bilaterally. Absent: rales, rhonchi, wheezes - Cardiovascular Cardiovascular exam: Present: regular rate and rhythm. Absent: diastolic murmur , JVD, systolic murmur - GI/Abdominal GI/Abdominal exam: Present: normal bowel sounds, soft. Absent: ascites, distended, mass, organomegaly, tenderness - Extremities Exam Extremities exam: Present: normal inspection, full ROM - Back Exam Back exam: Present: normal inspection - Neurological Exam Neurological exam: Present: alert, oriented X3 - Psychiatric Psychiatric exam: Present: normal affect, normal mood - Skin Skin exam: Present: normal color, warm, dry Results - Labs CBC & BMP: 06/18/17 05:14 06/18/17 05:14 Lab Results: I have reviewed the past 24 hour labs - Diagnostic Findings Procedure: CT Abdomen and Pelvis: report reviewed by me <Tony Morelos - Last Filed: 06/18/17 21:45> Exam (Progress Note) - Constitutional Vitals: Period Temp Pulse Resp BP Sys/Javed Pulse Ox Last 24 Hr 96.7 F-97.4 F 56-84 18-20 107-154/55-74 92-97 Results - Labs CBC & BMP: 06/18/17 05:14 06/18/17 05:14
[2017-06-18] MEDS: MORPHINE 10 MG/1 ML VIAL IV PRN (20:09)
[2017-06-18] MEDS: AMITRIPTYLINE 25 MG TABLET PO SCH (20:10)
[2017-06-19] MEDS: metroNIDAZOLE INJ 500 MG in PREMIX 1 EACH IV SCH ×2 (04:32→12:20)
[2017-06-19 05:45] LABS: Basophils % 0.4 % (0.0-0.8); Eosinophils # 0.2 10*3/uL (0.0-0.87); Eosinophils % 1.4 % (0.00-10.9); Hematocrit 39.6 VOL% (42.0-52.0); Hemoglobin 13.7 GM/DL (14.0-18.0); Immature Granulocytes % 0.3 %; Immature Granulocytes Absolute 0.03 #; Lymphocytes # 3.4 10*3/uL (1.4-4.0); Mean Corpuscular HGB Conc 34.6 GM/DL (32-36); Mean Corpuscular Hemoglobin 30 PG (27-34); Mean Corpuscular Volume 86.1 FL (87-102); Mean Platelet Volume 10.1 FL (9.6-12.0); Monocytes # 0.9 10*3/uL (0.11-0.8); Monocytes % 8.2 % (1.7-12.7); Neutrophils # 6.5 10*3/uL (1.4-7.4); Neutrophils % 58.7 % (38.7-73.9); Platelet Count 165 T/CUMM (130-400); White Blood Count 11.1 T/CUMM (4-12)
[2017-06-19 06:11] LABS: Calcium 7.8 MG/DL (8.5-10.1); Magnesium 1.9 MG/DL (1.8-2.4); Osmolality,Calculated 279.3 MOS/KG (273-304); Potassium 3.3 MMOL/L (3.5-5.1)
[2017-06-19] MEDS: INSULIN LISPRO 100 UNIT/ML SUBCUT SCH ×2 (08:30→12:20)
[2017-06-19] MEDS: SODIUM CHLORIDE 0.9% 1,000 ML IV SCH (08:50)
[2017-06-19] MEDS: CIPROFLOXACIN INJ 200 MG in PREMIX 1 EACH IV SCH (08:51)
[2017-06-19] MEDS: METOPROLOL TARTRATE 50 MG TABLET PO SCH (08:53)
[2017-06-19] MEDS: IRBESARTAN 150 MG TABLET PO SCH (08:53)
[2017-06-19] MEDS: sitaGLIPtin 100 MG TABLET PO SCH (08:53)
[2017-06-19] MEDS: PANTOPRAZOLE 40 MG TABLET PO SCH (08:53)
[2017-06-19] MEDS: POTASSIUM CHLORIDE 20 MEQ/15 ML UDCUP PO SCH (08:53)
[2017-06-19] MEDS: GLIMEPIRIDE 4 MG TABLET PO SCH (08:53)
[2017-06-19] MEDS: CILOSTAZOL 50 MG TABLET PO SCH (08:53)
[2017-06-19] MEDS: THYROID 60 MG TABLET PO SCH (08:53)
--- NOTE | 2017-06-19 11:19 | Gastrointestinal Progress Note ---
<AmangregoryernestineMercedes Filomena - Last Filed: 06/19/17 11:16> Assessment and Plan (1) Colitis Status: Acute Assessment and plan: 06/19-improvement in abdominal pain. Tolerating small amounts of diet. Reports small amount of bright red bleeding from rectum. H&H down slightly. Continue to monitor at this time. Plan an addendum follow Dr. Morelos. 06/18-improvements in abdominal pain as well as less frequent diarrhea. Small amount of dark red blood in stool today improved from onset. H&H stable at 15/ 44 without blood transfusion required. Tolerating diet. Plan an addendum to follow by Dr. Morelos. Gastroenterology - PN: Subj Interval history: CC: Colitis Patient is seen awake and alert lying in bed. States he had an uneventful night. Denies any abdominal pain, nausea or vomiting at this time. Patient states that he has not had a bowel movement in the past 3 days however yesterday he did verbalize some diarrhea stools. He states that this time he is only having a small amount of bright red rectal bleeding without stool. He feels like at this time that he is improving and states that he does not want to proceed with colonoscopy unless his symptoms do not continue to improve over the next several days. H&H is down slightly at 13/39 from yesterday. Abdomen is soft, nontender. ROS: Denies shortness of breath chest pain Exam (Progress Note) - Constitutional Vitals: Period Temp Pulse Resp BP Sys/Javed Pulse Ox Last 24 Hr 97.1 F-97.5 F 60-85 18-20 125-158/62-82 91-96 General appearance: normal weight, no acute distress - Head Head exam: Present: normal inspection, normocephalic - Eye Eye exam: Present: other (Lids and identified unremarkable). Absent: scleral icterus - ENT ENT exam: Present: normal exam, normal oropharynx - Neck Neck exam: Present: normal inspection - Respiratory Respiratory exam: Present: clear to auscultation bilaterally. Absent: rales, rhonchi, wheezes - Cardiovascular Cardiovascular exam: Present: regular rate and rhythm. Absent: diastolic murmur , JVD, systolic murmur - GI/Abdominal GI/Abdominal exam: Present: normal bowel sounds, soft. Absent: ascites, distended, mass, organomegaly, tenderness - Extremities Exam Extremities exam: Present: normal inspection, full ROM - Back Exam Back exam: Present: normal inspection - Neurological Exam Neurological exam: Present: alert, oriented X3 - Psychiatric Psychiatric exam: Present: normal affect, normal mood - Skin Skin exam: Present: normal color, warm, dry Results - Labs CBC & BMP: 06/19/17 04:52 06/19/17 04:52 Lab Results: I have reviewed the past 24 hour labs <Tony Morelos - Last Filed: 06/19/17 22:01> Exam (Progress Note) - Constitutional Vitals: Period Temp Pulse Resp BP Sys/Javed Pulse Ox Last 24 Hr 97.2 F-98.2 F 60-85 18-20 125-141/62-75 91-95 Results - Labs CBC & BMP: 06/19/17 04:52 06/19/17 04:52
[2017-06-19 11:58] VITALS: BP 141/75
[2017-06-19] MEDS ORDERED: BISACODYL 5 MG TABLET PO ONE (12:00)
--- NOTE | 2017-06-19 12:50 | Discharge Summary ---
<Sameera Cisneros - Last Filed: 06/19/17 12:26> Hospital Course - Hospital Course Hospital Course: This is a very pleasant 72-year-old male that presented to the ED at [facility] on the afternoon of June 16, 2017 for the evaluation of severe lower abdominal pain. The patient has a medical history significant for coronary artery disease, hypertension, myocardial infarction, non-insulin- dependent diabetes mellitus, renal calculi, hemorrhoids, gastroesophageal reflux disease, and hypothyroidism. Patient surgical history significant for cardiac stent placement, inguinal hernia surgery with mesh placement, spinal surgery, and cryotherapy for prostate cancer. Patient reported the onset of symptoms on the morning of presentation. He reported that he has had episodes similar in the past which were attributed to kidney stones however the pain experienced during this episode was different. He reported intermittent abdominal pain 3 days prior to presentation that progressed with nausea and vomiting on the morning of presentation. He denied hematuria and melena. At the time of presentation, the patient was noted to be in severe pain and distress. The patient was previously seen on the ED on June 14, 2017 for the evaluation of nausea, vomiting, abdominal pain. The patient was seen subsequently discharged with a diagnosis of gastroenteritis. In addition, during that encounter the patient was noted to have premature ventricular contractions and told to present to his heat treatment technician for Holter monitor fitting. The patient was assessed at the time of ED presentation. CT of the abdomen and pelvis showed a evidence of low-grade diverticulitis of the left colon without abscess or perforation.Stool studies showed moderate WBC, 4+ blood and no enteric pathogens and negative C.difficile. Labs were obtained and were essentially remarkable for chloride 109, BUN 22, creatinine 1.50, lactic acid 1.5 ,and glucose 155. The patient was subsequently admitted to the hospitalist service for continuation of care.He was started on IVF,anti emetics, pain meds, IV cipro and Flagyl. Stool was negative for C. difficile,no enetric pathogen noted but showed 4+ blood. . The patient was noted to have multiple maroon colored stools prompting a gastroenterology consultation. The patient was seen and recommendations were given. The patient's hemoglobin and hematocrit remained stable throughout the clinical encounter and the patient required no transfusion of blood products. The patient opted not to undergo colonoscopy due to the improvement of his symptoms. The patient's condition has improved. The patient has not experienced any significant overnight events. Today, we feel that the patient is indeed appropriate for discharge to follow-up with his primary care and aquaculturist as directed. Discharge Plan - Discharge Data Disposition: Home Health Service - Discharge Medications New Ciprofloxacin HCl [Ciprofloxacin Tab] 500 mg PO BID #14 tablet metroNIDAZOLE TAB [Flagyl Cap/Tab] 500 mg PO TID #20 tablet Pantoprazole Tab [Protonix Tab] 40 mg PO DAILY #30 tablet Acetaminophen Tab [Tylenol Tab] 650 mg PO Q4H PRN tablet PRN Reason: Fever, Headache, Mild Pain Thyroid [[place] Thyroid] 60 mg PO DAILY tablet HYDROcodone/ACETAMIN 5-325 [[place] 5-325] 1 tablet PO Q4H #20 tablet Continue NIFEdipine [Nifedipine ER] 30 mg PO BEDTIME sitaGLIPtin [Januvia] 100 mg PO DAILY Irbesartan 150 mg PO DAILY Cilostazol 50 mg PO BID Cholecalciferol (Vitamin D3) [Vitamin D3] 2,000 unit PO DAILY Amitriptyline [Elavil] 25 mg PO BEDTIME Glimepiride 4 mg PO DAILY Hydrocortisone (Anusol-Hc) Sup [Anusol HC Supp] 25 mg RECTAL BID #12 supp Metoprolol Tartrate 50 mg PO BID #60 tablet Discontinued Esomeprazole Magnesium [Esomeprazole] 40 mg PO DAILY Thyroid [[place] Thyroid] 60 mg PO DAILY Aspirin EC Tab 81 mg PO DAILY - Follow Up or Referral - Forms/Instructions Exam - Constitutional Vitals: Period Temp Pulse Resp BP Sys/Javed Pulse Ox Last 24 Hr 97.1 F-98.2 F 60-85 18-20 125-158/62-82 91-96 Discharge Results Procedures and tests throughout hospitalization: Pending Orders 06/16/17 16:34 Blood Culture Stat 06/16/17 21:36 Cryptosporidium Antigen Stool Routine 06/17/17 13:00 Occult Blood, Stool Routine 06/17/17 13:20 Norovirus, Stool Routine Parasitic Examination Routine Labs on day of discharge: Labs from last 24 hours 06/19/17 06/19/17 06/19/17 11:14 07:48 04:52 WBC RBC Hgb Hct MCV MCH MCHC RDW Plt Count MPV Neut % (Auto) Lymph % (Auto) [place] % (Auto) Eos % (Auto) Baso % (Auto) Neut # (Auto) Lymph # (Auto) [place] # (Auto) Eos # (Auto) Baso # (Auto) Immature Gran % Nucleated RBC % Immature Gran # Nucleated RBCs # Immature Plt Fraction Sodium 141 Potassium 3.3 L Chloride 108 H Carbon Dioxide 26 Anion Gap 10.3 BUN 15 Creatinine 1.20 GFR Calculation 71 BUN/Creatinine Ratio 12.00 Glucose 63 L POC Glucose 191 H 140 H Calculated Osmolality 279.3 Calcium 7.8 L Magnesium 1.9 06/19/17 06/18/17 06/18/17 04:52 20:54 15:53 WBC 11.1 RBC 4.60 Hgb 13.7 L Hct 39.6 L MCV 86.1 L MCH 30 MCHC 34.6 RDW 14.0 Plt Count 165 MPV 10.1 Neut % (Auto) 58.7 Lymph % (Auto) 31.0 [place] % (Auto) 8.2 Eos % (Auto) 1.4 Baso % (Auto) 0.4 Neut # (Auto) 6.5 Lymph # (Auto) 3.4 [place] # (Auto) 0.9 H Eos # (Auto) 0.2 Baso # (Auto) 0.0 Immature Gran % 0.3 Nucleated RBC % 0.0 Immature Gran # 0.03 Nucleated RBCs # 0.00 Immature Plt Fraction 0.0 Sodium Potassium Chloride Carbon Dioxide Anion Gap BUN Creatinine GFR Calculation BUN/Creatinine Ratio Glucose POC Glucose 73 L 120 H Calculated Osmolality Calcium Magnesium Preliminary micro results at discharge 06/16/17 16:34 Blood Culture - Preliminary Blood No growth at 1 day 06/16/17 16:34 Blood Culture - Preliminary Blood No growth at 1 day DS: Provider Date of admission: 06/16/17 18:35 Primary care physician: Kartik Elam MD Attending physician on admission: Edi Patel MD Consults: 06/17/17 10:26 Consult to Physician [CONS] Routine Comment: Consulting Provider: Dalila Levy Consulting Provider Notified: Yes When should Consulting Provider be notified: In am Consult to Specialist Group: Gastroenterology When should Consulting Provider be notified: Now Person Notified: Date Notified: 06/17/17 Time Notified: 10:34 Consult Notification Comment: will see today 06/19/17 10:33 Consult to Case Mgmt/Social Srvs [CONS] Routine Reason for Case Mgmt/Social Srvs: Discharge Planning Consult Comment: hh with pt Discharging clinician: Sameera Cisneros CNP <Noris Lin - Last Filed: 06/19/17 13:23> Hospital Course - Time spent with patient Time with patient DS: Greater than 30 minutes (Time spent 35mins) Diagnosis - Discharge Diagnosis (1) Continuous severe abdominal pain Status: Acute (2) Bloody stool Status: Acute (3) Hypertension Status: Chronic (4) Prostate cancer Status: Resolved (5) Diabetes Status: Acute (6) Diverticulitis Status: Acute (7) Hypokalemia Status: Acute Discharge Plan - Discharge Data Condition at Discharge: Stable Discharge Diet: advance to your usual diet Activity: resume usual activities as tolerated - Forms/Instructions Additional Discharge Instructions: Follow with PCP in 1week, follow with GI as scheduled Exam - Constitutional General appearance: no acute distress - Head Head exam: Present: normal inspection - Eye Eye exam: Present: EOMI - Respiratory Respiratory exam: Present: clear to auscultation bilaterally - GI/Abdominal GI/Abdominal exam: Present: normal bowel sounds - Extremities Exam Extremities exam: Present: normal inspection - Neurological Exam Neurological exam: Present: alert, oriented X3
[2017-06-19] MEDS ORDERED: POLYETHYLENE GLYCOL POWDER 255 GM BOTTLE PO ONE (14:00)
[2017-06-19] MEDS ORDERED: MAGNESIUM CITRATE 300 ML BOTTLE PO ONE (21:00)
--- NOTE | 2017-06-26 07:05 | Physician Query Form ---
CLICK EDIT DOCUMENT TO SELECT QUERY ANSWER --> OK --> SIGN Wanda Wilson RN, CCDS Certified Clinical Equipment Specialist W) [phone] (f) [phone] [email or web address]: Make your selection(s) from the choices in EACH section by typing an "x" and enter comments in the comment section. Please use your independent medical judgment in providing your response. This request does not imply that any particular answer is desired or expected. CLINICAL INDICATORS: (Providers should not edit this section) The medical record indicates that the patient was admitted with diverticulitis, Per ER "He has not noticed any hematuria and has not had any diarrhea or blood in his stool", "he saw blood in stool on but that this is from a hemorrhoid" AND on the : "bout of bloody stool this am". Based on the above, could you clarify the appropriate diagnosis, if significant , that supports the above abnormalities and additional evaluation, monitoring, and/or treatment rendered: ( ) Patient was treated for diverticulitis without bleeding ( ) Patient was treated for diverticulitis with bleeding ( x) Other, please specify: ( ) Clinically unable to determine COMMENTS: Treated for left-side colitis, with associated rectal bleeding, however unable to fully diagnose due to pt refusal to proceed with colonoscopy. PLEASE ALSO DOCUMENT RESPONSE IN PROGRESS NOTES AND/OR DISCHARGE SUMMARY Use of terms such as suspected, likely, or probable (associated with a specific diagnosis that is being evaluated, monitored, or treated as if it exists) are acceptable and can be restated in the discharge summary if not ruled out. MTDD
== END 2017-06-19 15:00 | disposition home health service (06) | DRG 392 ==
LOC: EDUNIT# → EDBD → N.ED 16:07 → SUATTDRO 18:35 → N.EDINP 18:35 → N.2E 19:40
PROVIDERS: ADMIT Internal Medicine; ATTEND Internal Medicine

== ENCOUNTER 2019-11-20 12:42 | Inpatient (IN) ==
[2019-11-20 13:51] LABS: Basophils # 0.1 10*3/uL (0.0-0.2); Basophils % 0.5 % (0.0-0.8); Eosinophils # 0.2 10*3/uL (0.0-0.87); Eosinophils % 1.8 % (0.00-10.9); Hematocrit 45.8 VOL% (42.0-52.0); Hemoglobin 15.2 GM/DL (14.0-18.0); Immature Granulocytes % 0.5 %; Immature Granulocytes Absolute 0.05 #; Lymphocytes # 2.2 10*3/uL (1.4-4.0); Lymphocytes % 23.4 % (21.2-54.2); Mean Corpuscular HGB Conc 33.2 GM/DL (32-36); Mean Corpuscular Volume 92.7 FL (87-102); Mean Platelet Volume 8.9 FL (9.6-12.0); Neutrophils % 64.8 % (38.7-73.9); Platelet Count 205 T/CUMM (130-400); Red Blood Count 4.94 MC/CUMM (3.8-5.5); Red Cell Distribution Width 13.1 % (9.3-17.3); White Blood Count 9.3 T/CUMM (4-12)
[2019-11-20 14:03] LABS: PT Patient Result 11.1 SECS (9.6-12.2); Partial Thromboplastin Time 28.5 SECS (20.8-36.0)
[2019-11-20 14:13] LABS: Albumin 2.8 G/DL (3.4-5.0); Bilirubin,Total 0.9 MG/DL (0.2-1.0); Calcium 8.7 MG/DL (8.5-10.1); Osmolality,Calculated 281.7 MOS/KG (273-304); Total Protein 6.8 G/DL (6.4-8.3)
[2019-11-20] MEDS ORDERED: HEPARIN 5,000 UNIT/1 ML VIAL IV STA (14:36)
[2019-11-20 15:22] LABS: Apearance,Urine CLOUDY (Clear); Bacteria,Urine Many /HPF (Few); Bilirubin,Urine Negative (Negative); Blood, Urine Small mg/dL (Negative); Glucose,Urine (UA) 150 mg/dL (Negative); Ketones,Urine Negative (Negative); Nitrite,Urine Negative (Negative); Protein,Urine 30 MG/DL; RBC,Urine 55 /HPF (0-4); Urine Color Yellow (Yellow); Urine Specific Gravity 1.018 (1.001-1.035); Urine Urobilinogen < 2.0 EU/DL (0.2-1.0); WBC,Urine 251 /HPF (0-6)
[2019-11-20] MEDS ORDERED: HYDROmorphone 2 MG/1 ML VIAL IV PRN (16:43)
[2019-11-20] MEDS: cefTRIAXone 1,000 MG in SYRINGE 1 EACH IV SCH (16:56)
[2019-11-20] MEDS ORDERED: GLUCAGON 1 MG VIAL IM PRN ×2 (17:15)
[2019-11-20] MEDS ORDERED: ACETAMINOPHEN 325 MG TABLET PO PRN (17:15)
[2019-11-20] MEDS ORDERED: DEXTROSE 50% 25 GM/50 ML VIAL IV PRN (17:15)
[2019-11-20] MEDS ORDERED: ONDANSETRON 4 MG/2 ML VIAL IV PRN (17:15)
[2019-11-20] MEDS ORDERED: DEXTROSE 10% 250 ML BAG IV PRN (17:15)
[2019-11-20] MEDS: INSULIN LISPRO 100 UNIT/ML SUBCUT SCH ×2 (17:28→20:18)
[2019-11-20] MEDS: HEPARIN DRIP 25,000 UNITS/500 ML PREMIX IV SCH (17:56)
[2019-11-20] MEDS: SODIUM CHLORIDE 0.9% 1,000 ML IV SCH (18:01)
[2019-11-20] MEDS: TAMSULOSIN 0.4 MG CAPSULE PO SCH (20:18)
[2019-11-20] MEDS: sitaGLIPtin 100 MG TABLET PO SCH (20:18)
[2019-11-20] MEDS: cilostazoL 50 MG TABLET PO SCH (20:18)
[2019-11-20] MEDS: LOSARTAN 50 MG TABLET PO SCH (20:18)
[2019-11-20] MEDS: POTASSIUM GLUCONATE 500 MG TABLET PO SCH (20:18)
[2019-11-20] MEDS: METOPROLOL SUCCINATE XL 25 MG TABLET PO SCH (20:18)
[2019-11-20] MEDS: DOCUSATE SODIUM 100 MG CAPSULE PO SCH (20:18)
[2019-11-20] MEDS: AMITRIPTYLINE 25 MG TABLET PO SCH (20:18)
[2019-11-20] MEDS: CETIRIZINE 10 MG TABLET PO SCH (20:18)
[2019-11-21] MEDS: SODIUM CHLORIDE 0.9% 1,000 ML IV SCH ×3 (02:10→18:02)
[2019-11-21 05:27] LABS: Basophils # 0.1 10*3/uL (0.0-0.2); Basophils % 0.7 % (0.0-0.8); Eosinophils # 0.2 10*3/uL (0.0-0.87); Eosinophils % 3.1 % (0.00-10.9); Hematocrit 43.1 VOL% (42.0-52.0); Hemoglobin 14.3 GM/DL (14.0-18.0); Immature Granulocytes % 0.6 %; Immature Granulocytes Absolute 0.04 #; Lymphocytes # 2.2 10*3/uL (1.4-4.0); Mean Corpuscular HGB Conc 33.2 GM/DL (32-36); Mean Corpuscular Volume 91.5 FL (87-102); Mean Platelet Volume 9.9 FL (9.6-12.0); Monocytes % 9.3 % (1.7-12.7); Neutrophils % 55.3 % (38.7-73.9); Platelet Count 223 T/CUMM (130-400); Red Blood Count 4.71 MC/CUMM (3.8-5.5); Red Cell Distribution Width 13.1 % (9.3-17.3); White Blood Count 7.1 T/CUMM (4-12)
[2019-11-21] MEDS: LEVOTHYROXINE 50 MCG TABLET PO SCH (05:42)
[2019-11-21 05:52] LABS: Calcium 8.4 MG/DL (8.5-10.1); Osmolality,Calculated 278.4 MOS/KG (273-304)
[2019-11-21] MEDS: INSULIN LISPRO 100 UNIT/ML SUBCUT SCH ×4 (07:37→20:53)
[2019-11-21] MEDS ORDERED: fentaNYL 100 MCG/2 ML VIAL IV ONE (09:16)
[2019-11-21] MEDS ORDERED: MIDAZOLAM 2 MG/2 ML VIAL IV ONE (09:16)
[2019-11-21] MEDS ORDERED: HEPARIN/NACL 0.9% 2 UNITS/ML 2,000 ML IV ONE (09:39)
[2019-11-21] MEDS ORDERED: HEPARIN 5,000 UNIT/1 ML VIAL ONE (09:47)
[2019-11-21] MEDS ORDERED: MIDAZOLAM 2 MG/2 ML VIAL ONE (09:49)
[2019-11-21] MEDS ORDERED: fentaNYL 100 MCG/2 ML VIAL ONE (09:49)
[2019-11-21] MEDS ORDERED: DIAZEPAM 5 MG TABLET PO ONE (10:00)
[2019-11-21] MEDS ORDERED: SODIUM CHLORIDE 0.9% IV ONE (10:00)
[2019-11-21] MEDS ORDERED: ALTEPLASE IV ONE (10:00)
[2019-11-21] MEDS: HEPARIN DRIP 25,000 UNITS/500 ML PREMIX IV SCH ×2 (12:20→15:12)
[2019-11-21] MEDS: MAGNESIUM CHLORIDE 64 MG TABLET PO SCH (12:28)
[2019-11-21] MEDS: DOCUSATE SODIUM 100 MG CAPSULE PO SCH ×2 (12:28→20:52)
[2019-11-21] MEDS: CHOLECALCIFEROL 1,000 UNIT TABLET PO SCH (12:28)
[2019-11-21] MEDS: METOPROLOL SUCCINATE XL 25 MG TABLET PO SCH ×2 (12:28→20:52)
[2019-11-21] MEDS: ASPIRIN EC 81 MG TABLET PO SCH (12:28)
[2019-11-21] MEDS: PANTOPRAZOLE 40 MG TABLET PO SCH (12:28)
[2019-11-21] MEDS: POTASSIUM GLUCONATE 500 MG TABLET PO SCH ×2 (12:28→20:52)
[2019-11-21] MEDS: CETIRIZINE 10 MG TABLET PO SCH ×2 (12:28→20:52)
[2019-11-21] MEDS: cilostazoL 50 MG TABLET PO SCH ×2 (12:29→20:52)
[2019-11-21] MEDS: TAMSULOSIN 0.4 MG CAPSULE PO SCH ×2 (12:29→20:52)
[2019-11-21] MEDS: LOSARTAN 50 MG TABLET PO SCH (20:52)
[2019-11-21] MEDS: sitaGLIPtin 100 MG TABLET PO SCH (20:53)
[2019-11-21] MEDS: AMITRIPTYLINE 25 MG TABLET PO SCH (20:53)
[2019-11-21] MEDS: cefTRIAXone 1,000 MG in SYRINGE 1 EACH IV SCH (20:55)
[2019-11-22] MEDS: SODIUM CHLORIDE 0.9% 1,000 ML IV SCH ×2 (02:02→09:52)
[2019-11-22] MEDS: HEPARIN DRIP 25,000 UNITS/500 ML PREMIX IV SCH ×3 (03:35→21:17)
[2019-11-22] MEDS: LEVOTHYROXINE 50 MCG TABLET PO SCH (06:02)
[2019-11-22] MEDS: DOCUSATE SODIUM 100 MG CAPSULE PO SCH ×2 (08:25→21:20)
[2019-11-22] MEDS: cilostazoL 50 MG TABLET PO SCH ×2 (08:25→21:20)
[2019-11-22] MEDS: CHOLECALCIFEROL 1,000 UNIT TABLET PO SCH (08:25)
[2019-11-22] MEDS: CETIRIZINE 10 MG TABLET PO SCH ×2 (08:25→21:20)
[2019-11-22] MEDS: ASPIRIN EC 81 MG TABLET PO SCH (08:25)
[2019-11-22] MEDS: POTASSIUM GLUCONATE 500 MG TABLET PO SCH ×2 (08:25→21:20)
[2019-11-22] MEDS: PANTOPRAZOLE 40 MG TABLET PO SCH (08:26)
[2019-11-22] MEDS: TAMSULOSIN 0.4 MG CAPSULE PO SCH ×2 (08:26→21:20)
[2019-11-22] MEDS: INSULIN LISPRO 100 UNIT/ML SUBCUT SCH ×4 (08:26→21:18)
[2019-11-22] MEDS: METOPROLOL SUCCINATE XL 25 MG TABLET PO SCH ×2 (08:26→21:20)
[2019-11-22] MEDS: MAGNESIUM CHLORIDE 64 MG TABLET PO SCH (08:26)
[2019-11-22] MEDS: cefTRIAXone 1,000 MG in SYRINGE 1 EACH IV SCH (21:18)
[2019-11-22] MEDS: AMITRIPTYLINE 25 MG TABLET PO SCH (21:19)
[2019-11-22] MEDS: LOSARTAN 50 MG TABLET PO SCH (21:20)
[2019-11-22] MEDS: sitaGLIPtin 100 MG TABLET PO SCH (21:20)
[2019-11-23] MEDS: SODIUM CHLORIDE 0.9% 1,000 ML IV SCH ×2 (03:18→21:48)
[2019-11-23] MEDS ORDERED: HEPARIN 5,000 UNIT/1 ML VIAL IV ONE (07:15)
[2019-11-23] MEDS: ASPIRIN EC 81 MG TABLET PO SCH (08:18)
[2019-11-23] MEDS: DOCUSATE SODIUM 100 MG CAPSULE PO SCH ×2 (08:18→21:48)
[2019-11-23] MEDS: PANTOPRAZOLE 40 MG TABLET PO SCH (08:18)
[2019-11-23] MEDS: LEVOTHYROXINE 50 MCG TABLET PO SCH (08:18)
[2019-11-23] MEDS: TAMSULOSIN 0.4 MG CAPSULE PO SCH ×2 (08:18→21:48)
[2019-11-23] MEDS: CETIRIZINE 10 MG TABLET PO SCH ×2 (08:18→21:48)
[2019-11-23] MEDS: MAGNESIUM CHLORIDE 64 MG TABLET PO SCH (08:18)
[2019-11-23] MEDS: CHOLECALCIFEROL 1,000 UNIT TABLET PO SCH (08:18)
[2019-11-23] MEDS: METOPROLOL SUCCINATE XL 25 MG TABLET PO SCH ×2 (08:18→21:48)
[2019-11-23] MEDS: POTASSIUM GLUCONATE 500 MG TABLET PO SCH ×2 (08:18→21:47)
[2019-11-23] MEDS: INSULIN LISPRO 100 UNIT/ML SUBCUT SCH ×4 (08:18→21:48)
[2019-11-23] MEDS: cilostazoL 50 MG TABLET PO SCH ×2 (08:18→21:47)
[2019-11-23] MEDS: HEPARIN DRIP 25,000 UNITS/500 ML PREMIX IV SCH (14:11)
[2019-11-23] MEDS: AMITRIPTYLINE 25 MG TABLET PO SCH (21:47)
[2019-11-23] MEDS: sitaGLIPtin 100 MG TABLET PO SCH (21:47)
[2019-11-23] MEDS: LOSARTAN 50 MG TABLET PO SCH (21:48)
[2019-11-23] MEDS: cefTRIAXone 1,000 MG in SYRINGE 1 EACH IV SCH (21:48)
[2019-11-24 05:46] LABS: Basophils % 0.5 % (0.0-0.8); Eosinophils # 0.3 10*3/uL (0.0-0.87); Eosinophils % 3.6 % (0.00-10.9); Hematocrit 44.2 VOL% (42.0-52.0); Hemoglobin 14.8 GM/DL (14.0-18.0); Immature Granulocytes % 0.6 %; Immature Granulocytes Absolute 0.05 #; Lymphocytes # 2.3 10*3/uL (1.4-4.0); Lymphocytes % 28.7 % (21.2-54.2); Mean Corpuscular HGB Conc 33.5 GM/DL (32-36); Mean Corpuscular Volume 90.8 FL (87-102); Mean Platelet Volume 9.6 FL (9.6-12.0); Neutrophils % 58.6 % (38.7-73.9); Platelet Count 230 T/CUMM (130-400); Red Blood Count 4.87 MC/CUMM (3.8-5.5); Red Cell Distribution Width 13.1 % (9.3-17.3)
[2019-11-24 06:35] LABS: Calcium 8.6 MG/DL (8.5-10.1); Osmolality,Calculated 283.3 MOS/KG (273-304)
[2019-11-24] MEDS: LEVOTHYROXINE 50 MCG TABLET PO SCH (07:12)
[2019-11-24] MEDS: HEPARIN DRIP 25,000 UNITS/500 ML PREMIX IV SCH ×2 (08:36→23:26)
[2019-11-24] MEDS: DOCUSATE SODIUM 100 MG CAPSULE PO SCH ×2 (08:39→21:16)
[2019-11-24] MEDS: CETIRIZINE 10 MG TABLET PO SCH ×2 (08:39→21:16)
[2019-11-24] MEDS: TAMSULOSIN 0.4 MG CAPSULE PO SCH ×2 (08:39→21:16)
[2019-11-24] MEDS: CHOLECALCIFEROL 1,000 UNIT TABLET PO SCH (08:39)
[2019-11-24] MEDS: PANTOPRAZOLE 40 MG TABLET PO SCH (08:39)
[2019-11-24] MEDS: INSULIN LISPRO 100 UNIT/ML SUBCUT SCH ×4 (08:39→22:15)
[2019-11-24] MEDS: POTASSIUM GLUCONATE 500 MG TABLET PO SCH ×2 (08:39→21:16)
[2019-11-24] MEDS: ASPIRIN EC 81 MG TABLET PO SCH (08:39)
[2019-11-24] MEDS: METOPROLOL SUCCINATE XL 25 MG TABLET PO SCH ×2 (08:39→21:16)
[2019-11-24] MEDS: MAGNESIUM CHLORIDE 64 MG TABLET PO SCH (08:39)
[2019-11-24] MEDS: cilostazoL 50 MG TABLET PO SCH ×2 (08:41→21:18)
[2019-11-24] MEDS ORDERED: HEPARIN 5,000 UNIT/1 ML VIAL IV ONE (14:00)
[2019-11-24] MEDS ORDERED: CALCIUM CARBONATE CHEW 500 MG TABLET PO PRN (20:03)
[2019-11-24] MEDS: LOSARTAN 50 MG TABLET PO SCH (21:16)
[2019-11-24] MEDS: AMITRIPTYLINE 25 MG TABLET PO SCH (21:16)
[2019-11-24] MEDS: cefTRIAXone 1,000 MG in SYRINGE 1 EACH IV SCH (21:16)
[2019-11-24] MEDS: sitaGLIPtin 100 MG TABLET PO SCH (21:16)
[2019-11-24] MEDS: SODIUM CHLORIDE 0.9% 1,000 ML IV SCH (23:26)
[2019-11-25] MEDS: HEPARIN DRIP 25,000 UNITS/500 ML PREMIX IV SCH (01:20)
[2019-11-25] MEDS: SODIUM CHLORIDE 0.9% 1,000 ML IV SCH (01:20)
[2019-11-25] MEDS: LEVOTHYROXINE 50 MCG TABLET PO SCH (06:22)
[2019-11-25] MEDS: TAMSULOSIN 0.4 MG CAPSULE PO SCH (09:40)
[2019-11-25] MEDS: POTASSIUM GLUCONATE 500 MG TABLET PO SCH (09:40)
[2019-11-25] MEDS: CETIRIZINE 10 MG TABLET PO SCH (09:40)
[2019-11-25] MEDS: MAGNESIUM CHLORIDE 64 MG TABLET PO SCH (09:40)
[2019-11-25] MEDS: ASPIRIN EC 81 MG TABLET PO SCH (09:40)
[2019-11-25] MEDS: DOCUSATE SODIUM 100 MG CAPSULE PO SCH (09:40)
[2019-11-25] MEDS: PANTOPRAZOLE 40 MG TABLET PO SCH (09:40)
[2019-11-25] MEDS: cilostazoL 50 MG TABLET PO SCH (09:40)
[2019-11-25] MEDS: METOPROLOL SUCCINATE XL 25 MG TABLET PO SCH (09:40)
[2019-11-25] MEDS: CHOLECALCIFEROL 1,000 UNIT TABLET PO SCH (09:40)
[2019-11-25] MEDS: INSULIN LISPRO 100 UNIT/ML SUBCUT SCH ×3 (09:40→16:38)
[2019-11-25 12:08] VITALS: BP 160/85
[2019-11-27 11:56] LABS: Protein C Activity Plasma 98 % (70 - 150)
[2019-11-27 14:36] LABS: Protein S Activity Plasma 151 % (65 - 160)
[2019-12-01 15:06] LABS: F5DNA Reviewed By SEE COMMENTS; Factor V Leiden (R506Q) Mutati Negative (Negative)
== END 2019-11-25 16:42 | disposition home or self-care (01) | DRG 253 ==
LOC: N.ED 12:42 → N.EDINP 12:42 → N.2E 16:35
PROVIDERS: ADMIT Family Medicine; ATTEND Family Medicine

== ENCOUNTER 2019-12-02 14:57 | Inpatient (IN) ==
[2019-12-02] MEDS ORDERED: GLUCAGON 1 MG VIAL IM PRN (15:56)
[2019-12-02] MEDS ORDERED: ONDANSETRON 4 MG/2 ML VIAL IV PRN (15:56)
[2019-12-02] MEDS ORDERED: ACETAMINOPHEN 325 MG TABLET PO PRN (15:56)
[2019-12-02] MEDS ORDERED: DEXTROSE 50% 25 GM/50 ML VIAL IV PRN (15:56)
[2019-12-02] MEDS ORDERED: CALCIUM CARBONATE CHEW 500 MG TABLET PO PRN (16:27)
[2019-12-02 17:34] LABS: Basophils # 0.1 10*3/uL (0.0-0.2); Basophils % 0.6 % (0.0-0.8); Eosinophils # 0.3 10*3/uL (0.0-0.87); Eosinophils % 3.1 % (0.00-10.9); Hematocrit 46.4 VOL% (42.0-52.0); Immature Granulocytes % 0.7 %; Immature Granulocytes Absolute 0.07 #; Lymphocytes # 2.5 10*3/uL (1.4-4.0); Lymphocytes % 26.9 % (21.2-54.2); Mean Corpuscular HGB Conc 32.3 GM/DL (32-36); Mean Corpuscular Volume 94.9 FL (87-102); Mean Platelet Volume 9.2 FL (9.6-12.0); Monocytes % 7.5 % (1.7-12.7); Neutrophils % 61.2 % (38.7-73.9); Platelet Count 227 T/CUMM (130-400); Red Blood Count 4.89 MC/CUMM (3.8-5.5); Red Cell Distribution Width 13.2 % (9.3-17.3); White Blood Count 9.5 T/CUMM (4-12)
[2019-12-02 17:51] LABS: Albumin 3.1 G/DL (3.4-5.0); Bilirubin,Total 0.7 MG/DL (0.2-1.0); Osmolality,Calculated 279.7 MOS/KG (273-304)
[2019-12-02] MEDS: INSULIN LISPRO 100 UNIT/ML SUBCUT SCH ×2 (18:05→22:00)
[2019-12-02] MEDS: cephALEXin 500 MG CAPSULE PO SCH ×2 (18:06→21:54)
[2019-12-02] MEDS: SODIUM CHLORIDE 0.45% 1,000 ML IV SCH (18:06)
[2019-12-02] MEDS: HEPARIN DRIP 25,000 UNITS/500 ML PREMIX IV SCH (18:06)
[2019-12-02 19:23] LABS: Apearance,Urine CLEAR (Clear); Bilirubin,Urine Negative (Negative); Blood, Urine Small mg/dL (Negative); Glucose,Urine (UA) 50 mg/dL (Negative); Hyaline Casts,Urine 1 /LPF (0-3); Ketones,Urine Negative (Negative); Mucus,Urine Occasional /LPF (Occasional); Nitrite,Urine Negative (Negative); Protein,Urine 100 MG/DL; RBC,Urine 3 /HPF (0-4); Urine Color Straw (Yellow); Urine Specific Gravity 1.008 (1.001-1.035); Urine Urobilinogen < 2.0 EU/DL (0.2-1.0); WBC,Urine 3 /HPF (0-6)
[2019-12-02] MEDS ORDERED: LOSARTAN 50 MG TABLET PO SCH (21:00)
[2019-12-02] MEDS: AMITRIPTYLINE 25 MG TABLET PO SCH (21:54)
[2019-12-02] MEDS: CETIRIZINE 10 MG TABLET PO SCH (21:54)
[2019-12-02] MEDS: POTASSIUM GLUCONATE 500 MG TABLET PO SCH (21:54)
[2019-12-02] MEDS: sitaGLIPtin 100 MG TABLET PO SCH (21:54)
[2019-12-02] MEDS: TAMSULOSIN 0.4 MG CAPSULE PO SCH (21:54)
[2019-12-02] MEDS: METOPROLOL SUCCINATE XL 25 MG TABLET PO SCH (21:54)
[2019-12-02] MEDS: cilostazoL 50 MG TABLET PO SCH (22:00)
[2019-12-02] MEDS: DOCUSATE SODIUM 100 MG CAPSULE PO SCH (22:06)
[2019-12-03] MEDS: SODIUM CHLORIDE 0.45% 1,000 ML IV SCH ×3 (03:00→18:49)
[2019-12-03] MEDS: LEVOTHYROXINE 50 MCG TABLET PO SCH (05:45)
[2019-12-03] MEDS: INSULIN LISPRO 100 UNIT/ML SUBCUT SCH ×4 (08:05→21:26)
[2019-12-03] MEDS: PANTOPRAZOLE 40 MG TABLET PO SCH (08:50)
[2019-12-03] MEDS: METOPROLOL SUCCINATE XL 25 MG TABLET PO SCH ×2 (08:50→21:19)
[2019-12-03] MEDS: cephALEXin 500 MG CAPSULE PO SCH ×4 (08:50→21:18)
[2019-12-03] MEDS: POTASSIUM GLUCONATE 500 MG TABLET PO SCH ×2 (08:50→21:19)
[2019-12-03] MEDS: MAGNESIUM CHLORIDE 64 MG TABLET PO SCH (08:50)
[2019-12-03] MEDS: GLIMEPIRIDE 4 MG TABLET PO SCH (08:50)
[2019-12-03] MEDS: cilostazoL 50 MG TABLET PO SCH ×2 (08:50→21:19)
[2019-12-03] MEDS: DOCUSATE SODIUM 100 MG CAPSULE PO SCH ×2 (08:51→21:18)
[2019-12-03] MEDS: TAMSULOSIN 0.4 MG CAPSULE PO SCH ×2 (08:51→21:18)
[2019-12-03] MEDS: CHOLECALCIFEROL 1,000 UNIT TABLET PO SCH (08:51)
[2019-12-03] MEDS: HEPARIN DRIP 25,000 UNITS/500 ML PREMIX IV SCH (09:34)
[2019-12-03] MEDS: CETIRIZINE 10 MG TABLET PO SCH (21:18)
[2019-12-03] MEDS: sitaGLIPtin 100 MG TABLET PO SCH (21:18)
[2019-12-03] MEDS: AMITRIPTYLINE 25 MG TABLET PO SCH (21:19)
[2019-12-04] MEDS: HEPARIN DRIP 25,000 UNITS/500 ML PREMIX IV SCH (00:37)
[2019-12-04 06:00] LABS: Calcium 8.6 MG/DL (8.5-10.1); Osmolality,Calculated 278.5 MOS/KG (273-304)
[2019-12-04] MEDS: LEVOTHYROXINE 50 MCG TABLET PO SCH (06:31)
[2019-12-04] MEDS: SODIUM CHLORIDE 0.45% 1,000 ML IV SCH ×4 (06:33→18:13)
[2019-12-04] MEDS ORDERED: DIAZEPAM 5 MG TABLET PO ONE (07:00)
[2019-12-04] MEDS ORDERED: MIDAZOLAM 2 MG/2 ML VIAL IV ONE (07:00)
[2019-12-04] MEDS ORDERED: fentaNYL 100 MCG/2 ML VIAL IV ONE (07:00)
[2019-12-04] MEDS ORDERED: ALTEPLASE 2 MG VIAL INTRACATH ONE ×2 (07:32→08:00)
[2019-12-04] MEDS ORDERED: HEPARIN/NACL 0.9% 2 UNITS/ML 0 ML IV ONE (07:43)
[2019-12-04] MEDS ORDERED: ALTEPLASE 12 MG in SODIUM CHLORIDE 0.9% 240 ML IV SCH ×2 (08:00→16:00)
[2019-12-04] MEDS ORDERED: MIDAZOLAM 2 MG/2 ML VIAL ONE (08:02)
[2019-12-04] MEDS ORDERED: fentaNYL 100 MCG/2 ML VIAL ONE (08:02)
[2019-12-04] MEDS ORDERED: MORPHINE 4 MG/1 ML VIAL IV PRN (09:15)
[2019-12-04] MEDS ORDERED: ALTEPLASE 24 MG in SODIUM CHLORIDE 0.9% 480 ML IV SCH (09:30)
[2019-12-04] MEDS ORDERED: HEPARIN DRIP 25,000 UNITS/500 ML PREMIX IV SCH (09:32)
[2019-12-04] MEDS: SODIUM CHLORIDE 0.9% 1,000 ML IV SCH (09:35)
[2019-12-04] MEDS ORDERED: MAGNESIUM SULF RIDER 2 GM in PREMIX 1 EACH IV ONE (10:06)
[2019-12-04] MEDS ORDERED: POTASSIUM CHLORIDE 20 MEQ TABLET PO ONE (10:06)
[2019-12-04] MEDS: INSULIN LISPRO 100 UNIT/ML SUBCUT SCH ×4 (10:19→20:16)
[2019-12-04 10:22] LABS: PT Patient Result 11.1 SECS (9.6-12.2)
[2019-12-04] MEDS: cilostazoL 50 MG TABLET PO SCH ×2 (10:22→20:16)
[2019-12-04 10:28] LABS: Partial Thromboplastin Time 67.3 SECS (20.8-36.0)
[2019-12-04] MEDS: PANTOPRAZOLE 40 MG TABLET PO SCH (11:30)
[2019-12-04] MEDS: MAGNESIUM CHLORIDE 64 MG TABLET PO SCH (11:30)
[2019-12-04] MEDS: METOPROLOL SUCCINATE XL 25 MG TABLET PO SCH (11:30)
[2019-12-04] MEDS: TAMSULOSIN 0.4 MG CAPSULE PO SCH ×2 (11:30→20:16)
[2019-12-04] MEDS: CHOLECALCIFEROL 1,000 UNIT TABLET PO SCH (11:30)
[2019-12-04] MEDS: cephALEXin 500 MG CAPSULE PO SCH ×4 (11:31→20:16)
[2019-12-04] MEDS: DOCUSATE SODIUM 100 MG CAPSULE PO SCH ×2 (11:31→20:16)
[2019-12-04] MEDS: GLIMEPIRIDE 4 MG TABLET PO SCH (12:09)
[2019-12-04] MEDS: POTASSIUM GLUCONATE 500 MG TABLET PO SCH ×2 (14:09→20:15)
[2019-12-04] MEDS: amLODIPine 5 MG TABLET PO SCH ×2 (15:11→23:26)
[2019-12-04] MEDS: ASCORBIC ACID 500 MG TABLET PO SCH ×2 (15:14→20:15)
[2019-12-04 18:08] LABS: INR 1.1; PT Patient Result 11.9 SECS (9.6-12.2)
[2019-12-04] MEDS: METOPROLOL SUCCINATE XL 50 MG TABLET PO SCH (20:16)
[2019-12-04] MEDS: CETIRIZINE 10 MG TABLET PO SCH (20:16)
[2019-12-04] MEDS: sitaGLIPtin 100 MG TABLET PO SCH (20:16)
[2019-12-04] MEDS: AMITRIPTYLINE 25 MG TABLET PO SCH (20:16)
[2019-12-05] MEDS ORDERED: SODIUM CHLORIDE 0.9% 1,000 ML IV SCH (00:30)
[2019-12-05] MEDS: HEPARIN DRIP 25,000 UNITS/500 ML PREMIX IV SCH ×3 (00:38→23:09)
[2019-12-05] MEDS: SODIUM CHLORIDE 0.45% 1,000 ML IV SCH ×4 (01:53→23:11)
[2019-12-05 04:42] LABS: INR 1.1; PT Patient Result 12.1 SECS (9.6-12.2)
[2019-12-05 05:03] LABS: Calcium 8.3 MG/DL (8.5-10.1); Osmolality,Calculated 274.7 MOS/KG (273-304)
[2019-12-05] MEDS: LEVOTHYROXINE 50 MCG TABLET PO SCH (05:55)
[2019-12-05] MEDS ORDERED: POTASSIUM CHLORIDE 20 MEQ TABLET PO ONE (07:13)
[2019-12-05] MEDS: SODIUM CHLORIDE 0.9% 1,000 ML IV SCH (09:35)
[2019-12-05] MEDS: GLIMEPIRIDE 4 MG TABLET PO SCH (11:12)
[2019-12-05] MEDS: MAGNESIUM CHLORIDE 64 MG TABLET PO SCH (11:12)
[2019-12-05] MEDS: POTASSIUM GLUCONATE 500 MG TABLET PO SCH ×2 (11:12→20:05)
[2019-12-05] MEDS: CHOLECALCIFEROL 1,000 UNIT TABLET PO SCH (11:12)
[2019-12-05] MEDS: ASCORBIC ACID 500 MG TABLET PO SCH ×2 (11:12→20:05)
[2019-12-05] MEDS: cephALEXin 500 MG CAPSULE PO SCH ×4 (11:12→20:04)
[2019-12-05] MEDS: METOPROLOL SUCCINATE XL 50 MG TABLET PO SCH ×2 (11:13→20:05)
[2019-12-05] MEDS: PANTOPRAZOLE 40 MG TABLET PO SCH (11:13)
[2019-12-05] MEDS: amLODIPine 5 MG TABLET PO SCH (11:13)
[2019-12-05] MEDS: TAMSULOSIN 0.4 MG CAPSULE PO SCH ×2 (11:13→20:05)
[2019-12-05] MEDS: INSULIN LISPRO 100 UNIT/ML SUBCUT SCH ×4 (11:14→21:30)
[2019-12-05] MEDS: DOCUSATE SODIUM 100 MG CAPSULE PO SCH ×2 (11:15→20:05)
[2019-12-05] MEDS: cilostazoL 50 MG TABLET PO SCH ×2 (11:26→20:04)
[2019-12-05] MEDS ORDERED: HEPARIN 5,000 UNIT/1 ML VIAL IV ONE (13:50)
[2019-12-05] MEDS: AMITRIPTYLINE 25 MG TABLET PO SCH (20:04)
[2019-12-05] MEDS: sitaGLIPtin 100 MG TABLET PO SCH (20:04)
[2019-12-05] MEDS: CETIRIZINE 10 MG TABLET PO SCH (20:04)
[2019-12-06 06:14] LABS: PT Patient Result 11.3 SECS (9.6-12.2)
[2019-12-06] MEDS: LEVOTHYROXINE 50 MCG TABLET PO SCH (06:19)
[2019-12-06] MEDS: SODIUM CHLORIDE 0.45% 1,000 ML IV SCH ×3 (06:19→22:45)
[2019-12-06] MEDS: INSULIN LISPRO 100 UNIT/ML SUBCUT SCH ×4 (08:21→20:36)
[2019-12-06] MEDS: POTASSIUM GLUCONATE 500 MG TABLET PO SCH ×2 (09:39→20:35)
[2019-12-06] MEDS: cilostazoL 50 MG TABLET PO SCH ×2 (09:39→20:35)
[2019-12-06] MEDS: cephALEXin 500 MG CAPSULE PO SCH ×4 (09:39→20:35)
[2019-12-06] MEDS: ASCORBIC ACID 500 MG TABLET PO SCH ×2 (09:39→20:35)
[2019-12-06] MEDS: METOPROLOL SUCCINATE XL 50 MG TABLET PO SCH ×2 (09:39→20:40)
[2019-12-06] MEDS: CHOLECALCIFEROL 1,000 UNIT TABLET PO SCH (09:40)
[2019-12-06] MEDS: TAMSULOSIN 0.4 MG CAPSULE PO SCH ×2 (09:40→20:36)
[2019-12-06] MEDS: GLIMEPIRIDE 4 MG TABLET PO SCH (09:40)
[2019-12-06] MEDS: PANTOPRAZOLE 40 MG TABLET PO SCH (09:40)
[2019-12-06] MEDS: MAGNESIUM CHLORIDE 64 MG TABLET PO SCH (09:40)
[2019-12-06] MEDS: DOCUSATE SODIUM 100 MG CAPSULE PO SCH ×2 (09:40→20:35)
[2019-12-06 10:47] LABS: Basophils # 0.1 10*3/uL (0.0-0.2); Basophils % 0.7 % (0.0-0.8); Eosinophils # 0.5 10*3/uL (0.0-0.87); Eosinophils % 6.1 % (0.00-10.9); Hematocrit 39.8 VOL% (42.0-52.0); Hemoglobin 13.2 GM/DL (14.0-18.0); Immature Granulocytes Absolute 0.07 #; Lymphocytes % 27.2 % (21.2-54.2); Mean Corpuscular HGB Conc 33.2 GM/DL (32-36); Mean Corpuscular Volume 93.9 FL (87-102); Mean Platelet Volume 9.9 FL (9.6-12.0); Monocytes % 7.1 % (1.7-12.7); Neutrophils % 57.9 % (38.7-73.9); Platelet Count 147 T/CUMM (130-400); Red Blood Count 4.24 MC/CUMM (3.8-5.5); Red Cell Distribution Width 13.4 % (9.3-17.3); White Blood Count 7.4 T/CUMM (4-12)
[2019-12-06 11:08] LABS: Albumin 2.7 G/DL (3.4-5.0); Bilirubin,Total 0.7 MG/DL (0.2-1.0); Calcium 8.3 MG/DL (8.5-10.1); Osmolality,Calculated 280.7 MOS/KG (273-304); Total Protein 6.1 G/DL (6.4-8.3)
[2019-12-06] MEDS: HEPARIN DRIP 25,000 UNITS/500 ML PREMIX IV SCH ×2 (14:45→20:26)
[2019-12-06] MEDS: AMITRIPTYLINE 25 MG TABLET PO SCH (20:35)
[2019-12-06] MEDS: sitaGLIPtin 100 MG TABLET PO SCH (20:35)
[2019-12-06] MEDS: CETIRIZINE 10 MG TABLET PO SCH (20:36)
[2019-12-07 01:56] LABS: Basophils # 0.1 10*3/uL (0.0-0.2); Basophils % 0.6 % (0.0-0.8); Eosinophils # 0.4 10*3/uL (0.0-0.87); Eosinophils % 5.5 % (0.00-10.9); Hematocrit 40.7 VOL% (42.0-52.0); Hemoglobin 13.7 GM/DL (14.0-18.0); Immature Granulocytes % 1.1 %; Immature Granulocytes Absolute 0.09 #; Lymphocytes % 37.7 % (21.2-54.2); Mean Corpuscular HGB Conc 33.7 GM/DL (32-36); Mean Corpuscular Volume 92.7 FL (87-102); Mean Platelet Volume 9.5 FL (9.6-12.0); Monocytes % 9.1 % (1.7-12.7); Platelet Count 158 T/CUMM (130-400); Red Blood Count 4.39 MC/CUMM (3.8-5.5); Red Cell Distribution Width 13.5 % (9.3-17.3)
[2019-12-07 02:21] LABS: Albumin 2.8 G/DL (3.4-5.0); Bilirubin,Total 0.6 MG/DL (0.2-1.0); Calcium 9.3 MG/DL (8.5-10.1); Osmolality,Calculated 283.3 MOS/KG (273-304); Total Protein 6.5 G/DL (6.4-8.3)
[2019-12-07] MEDS: HEPARIN DRIP 25,000 UNITS/500 ML PREMIX IV SCH ×2 (03:39→19:07)
[2019-12-07] MEDS: LEVOTHYROXINE 50 MCG TABLET PO SCH (06:47)
[2019-12-07] MEDS: SODIUM CHLORIDE 0.45% 1,000 ML IV SCH ×3 (06:48→22:58)
[2019-12-07] MEDS: INSULIN LISPRO 100 UNIT/ML SUBCUT SCH ×4 (08:53→21:29)
[2019-12-07] MEDS: MAGNESIUM CHLORIDE 64 MG TABLET PO SCH (09:21)
[2019-12-07] MEDS: ASCORBIC ACID 500 MG TABLET PO SCH ×2 (09:21→21:27)
[2019-12-07] MEDS: cephALEXin 500 MG CAPSULE PO SCH ×4 (09:21→21:27)
[2019-12-07] MEDS: DOCUSATE SODIUM 100 MG CAPSULE PO SCH ×2 (09:22→21:28)
[2019-12-07] MEDS: METOPROLOL SUCCINATE XL 50 MG TABLET PO SCH ×2 (09:22→21:28)
[2019-12-07] MEDS: cilostazoL 50 MG TABLET PO SCH ×2 (09:22→21:28)
[2019-12-07] MEDS: PANTOPRAZOLE 40 MG TABLET PO SCH (09:22)
[2019-12-07] MEDS: CHOLECALCIFEROL 1,000 UNIT TABLET PO SCH (09:22)
[2019-12-07] MEDS: GLIMEPIRIDE 4 MG TABLET PO SCH (09:22)
[2019-12-07] MEDS: POTASSIUM GLUCONATE 500 MG TABLET PO SCH ×2 (09:22→21:28)
[2019-12-07] MEDS: TAMSULOSIN 0.4 MG CAPSULE PO SCH ×2 (09:22→21:27)
[2019-12-07] MEDS: CETIRIZINE 10 MG TABLET PO SCH (21:27)
[2019-12-07] MEDS: AMITRIPTYLINE 25 MG TABLET PO SCH (21:28)
[2019-12-07] MEDS: sitaGLIPtin 100 MG TABLET PO SCH (21:28)
[2019-12-08 02:41] LABS: Basophils # 0.1 10*3/uL (0.0-0.2); Basophils % 0.7 % (0.0-0.8); Eosinophils # 0.3 10*3/uL (0.0-0.87); Eosinophils % 4.2 % (0.00-10.9); Hematocrit 41.4 VOL% (42.0-52.0); Hemoglobin 13.9 GM/DL (14.0-18.0); Immature Granulocytes Absolute 0.08 #; Lymphocytes # 2.8 10*3/uL (1.4-4.0); Lymphocytes % 34.2 % (21.2-54.2); Mean Corpuscular HGB Conc 33.6 GM/DL (32-36); Mean Platelet Volume 9.7 FL (9.6-12.0); Monocytes % 8.3 % (1.7-12.7); Neutrophils % 51.6 % (38.7-73.9); Platelet Count 159 T/CUMM (130-400); Red Cell Distribution Width 13.9 % (9.3-17.3); White Blood Count 8.1 T/CUMM (4-12)
[2019-12-08 02:59] LABS: Albumin 2.8 G/DL (3.4-5.0); Bilirubin,Total 0.7 MG/DL (0.2-1.0); Calcium 8.7 MG/DL (8.5-10.1); Osmolality,Calculated 281.5 MOS/KG (273-304); Total Protein 6.5 G/DL (6.4-8.3)
[2019-12-08] MEDS: LEVOTHYROXINE 50 MCG TABLET PO SCH (06:41)
[2019-12-08] MEDS: SODIUM CHLORIDE 0.45% 1,000 ML IV SCH ×2 (06:44→14:11)
[2019-12-08] MEDS: GLIMEPIRIDE 4 MG TABLET PO SCH (08:38)
[2019-12-08] MEDS: POTASSIUM GLUCONATE 500 MG TABLET PO SCH (08:39)
[2019-12-08] MEDS: cilostazoL 50 MG TABLET PO SCH (08:39)
[2019-12-08] MEDS: MAGNESIUM CHLORIDE 64 MG TABLET PO SCH (08:39)
[2019-12-08] MEDS: ASCORBIC ACID 500 MG TABLET PO SCH (08:40)
[2019-12-08] MEDS: CHOLECALCIFEROL 1,000 UNIT TABLET PO SCH (08:40)
[2019-12-08] MEDS: METOPROLOL SUCCINATE XL 50 MG TABLET PO SCH (08:40)
[2019-12-08] MEDS: TAMSULOSIN 0.4 MG CAPSULE PO SCH (08:41)
[2019-12-08] MEDS: PANTOPRAZOLE 40 MG TABLET PO SCH (08:41)
[2019-12-08] MEDS: DOCUSATE SODIUM 100 MG CAPSULE PO SCH (08:41)
[2019-12-08] MEDS: cephALEXin 500 MG CAPSULE PO SCH ×2 (08:41→12:50)
[2019-12-08] MEDS ORDERED: APIXABAN 5 MG TABLET PO SCH (09:00)
[2019-12-08] MEDS: HEPARIN DRIP 25,000 UNITS/500 ML PREMIX IV SCH (10:35)
[2019-12-08 12:06] VITALS: BP 144/92
[2019-12-08] MEDS: INSULIN LISPRO 100 UNIT/ML SUBCUT SCH ×2 (12:06→12:50)
[2019-12-08 13:25] LABS: DRVVT Screen Ratio 0.99 ratio (<1.20); INR 1.2 (0.9-1.1)
[2019-12-08 20:26] LABS: Phospholipid Ab IgM, S 17.7 MPL
[2019-12-09 16:13] LABS: F5DNA Reviewed By SEE COMMENTS; Factor V Leiden (R506Q) Mutati Negative (Negative); PTNT Reviewed By SEE COMMENTS
== END 2019-12-08 13:55 | disposition home or self-care (01) | DRG 300 ==
LOC: N.ULTRA 14:57 → N.2E 15:48 → N.CC 12-04 09:46 → N.4E 12-05 15:46
PROVIDERS: ADMIT Family Medicine; ATTEND Family Medicine

== ENCOUNTER 2020-10-12 11:45 | Inpatient (IN) ==
[2020-10-12 12:25] LABS: Basophils # 0.1 10*3/uL (0.0-0.2); Basophils % 0.9 % (0.0-0.8); Eosinophils # 0.1 10*3/uL (0.0-0.87); Eosinophils % 1.5 % (0.00-10.9); Hematocrit 47.4 VOL% (42.0-52.0); Hemoglobin 15.8 GM/DL (14.0-18.0); Immature Granulocytes Absolute 0.08 #; Lymphocytes # 1.8 10*3/uL (1.4-4.0); Lymphocytes % 22.6 % (21.2-54.2); Mean Corpuscular HGB Conc 33.3 GM/DL (32-36); Mean Corpuscular Volume 95.6 FL (87-102); Mean Platelet Volume 9.2 FL (9.6-12.0); Platelet Count 253 T/CUMM (130-400); Red Blood Count 4.96 MC/CUMM (3.8-5.5); Red Cell Distribution Width 15.1 % (9.3-17.3); White Blood Count 7.8 T/CUMM (4-12)
[2020-10-12 12:39] LABS: Albumin 3.3 G/DL (3.4-5.0); Calcium 10.2 MG/DL (8.5-10.1); Total Protein 7.5 G/DL (6.4-8.3)
[2020-10-12 12:40] LABS: PT Patient Result 11.1 SECS (9.8-11.9); Partial Thromboplastin Time 29.9 SECS (23.9-33.8)
[2020-10-12] MEDS ORDERED: hydrALAZINE 20 MG/1 ML VIAL ONE (15:17)
[2020-10-12] MEDS ORDERED: hydrALAZINE 20 MG/1 ML VIAL IV STA (15:17)
[2020-10-12] MEDS ORDERED: cefTRIAXone 1,000 MG in SODIUM CHLORIDE 0.9% 100 ML IV STA (15:43)
[2020-10-12] MEDS ORDERED: ALBUTEROL/IPRATROPIUM 3 ML NEB RESP TX STA ×2 (15:43→17:24)
[2020-10-12] MEDS ORDERED: SODIUM CHLORIDE 0.9% 1,000 ML IV STA (15:43)
[2020-10-12 16:08] LABS: Ferritin 91.7 ng/ml (26-388)
[2020-10-12] MEDS ORDERED: ACETAMINOPHEN 325 MG TABLET PO PRN (17:24)
[2020-10-12] MEDS ORDERED: DEXTROSE 50% 25 GM/50 ML VIAL IV PRN (17:24)
[2020-10-12] MEDS ORDERED: GLUCAGON 1 MG VIAL IM PRN (17:24)
[2020-10-12] MEDS ORDERED: ONDANSETRON 4 MG/2 ML VIAL IV PRN (17:24)
[2020-10-12] MEDS ORDERED: ALBUTEROL/IPRATROPIUM 3 ML NEB RESP TX PRN (17:52)
[2020-10-12] MEDS: SODIUM CHLORIDE 0.9% 1,000 ML IV SCH (18:01)
[2020-10-12] MEDS ORDERED: INFLUENZA VIRUS VACCINE 0.5 ML SYRINGE IM ONE (18:22)
[2020-10-12] MEDS: INSULIN REGULAR 100 UNIT/ML SUBCUT SCH ×2 (18:25→21:00)
[2020-10-12] MEDS ORDERED: AZITHROMYCIN INJ 500 MG in SODIUM CHLORIDE 0.9% 250 ML IV ONE (20:00)
[2020-10-12] MEDS: TAMSULOSIN 0.4 MG CAPSULE PO SCH (21:01)
[2020-10-12] MEDS: METOPROLOL SUCCINATE XL 25 MG TABLET PO SCH (21:01)
[2020-10-12] MEDS: sitaGLIPtin 100 MG TABLET PO SCH (21:01)
[2020-10-12] MEDS: cilostazoL 50 MG TABLET PO SCH (21:01)
[2020-10-12] MEDS: APIXABAN 5 MG TABLET PO SCH (21:01)
[2020-10-12] MEDS: AMITRIPTYLINE 50 MG TABLET PO SCH (21:01)
[2020-10-12] MEDS: DOCUSATE SODIUM 100 MG CAPSULE PO SCH (21:02)
[2020-10-12] MEDS: ASCORBIC ACID 500 MG TABLET PO SCH (21:02)
[2020-10-12] MEDS: LOSARTAN 50 MG TABLET PO SCH (21:02)
[2020-10-12] MEDS: POTASSIUM GLUCONATE 500 MG TABLET PO SCH (21:04)
[2020-10-13] MEDS: SODIUM CHLORIDE 0.9% 1,000 ML IV SCH ×4 (02:57→20:00)
[2020-10-13 05:58] LABS: Basophils # 0.1 10*3/uL (0.0-0.2); Basophils % 0.7 % (0.0-0.8); Eosinophils # 0.1 10*3/uL (0.0-0.87); Eosinophils % 0.8 % (0.00-10.9); Hematocrit 42.4 VOL% (42.0-52.0); Immature Granulocytes Absolute 0.08 #; Lymphocytes # 1.4 10*3/uL (1.4-4.0); Lymphocytes % 16.6 % (21.2-54.2); Mean Corpuscular Volume 95.1 FL (87-102); Mean Platelet Volume 9.5 FL (9.6-12.0); Neutrophils % 71.9 % (38.7-73.9); Platelet Count 242 T/CUMM (130-400); Red Blood Count 4.46 MC/CUMM (3.8-5.5); White Blood Count 8.4 T/CUMM (4-12)
[2020-10-13] MEDS: LEVOTHYROXINE 50 MCG TABLET PO SCH (06:14)
[2020-10-13 06:29] LABS: Albumin 2.6 G/DL (3.4-5.0); Calcium 9.6 MG/DL (8.5-10.1); Osmolality,Calculated 281.1 MOS/KG (273-304); Risk Ratio 6.11; Thyroid Stimulating Hormone 3.15 uIU/ml (0.358-3.74); Total Protein 6.2 G/DL (6.4-8.3); VLDL CHOLESTEROL 21.4 MG/DL
[2020-10-13] MEDS: METOPROLOL SUCCINATE XL 25 MG TABLET PO SCH ×2 (09:45→23:08)
[2020-10-13] MEDS: DOCUSATE SODIUM 100 MG CAPSULE PO SCH ×2 (09:45→23:09)
[2020-10-13] MEDS: TAMSULOSIN 0.4 MG CAPSULE PO SCH ×2 (09:45→23:09)
[2020-10-13] MEDS: PANTOPRAZOLE 40 MG TABLET PO SCH (09:45)
[2020-10-13] MEDS: ESCITALOPRAM 10 MG TABLET PO SCH (09:45)
[2020-10-13] MEDS: APIXABAN 5 MG TABLET PO SCH ×2 (09:46→23:08)
[2020-10-13] MEDS: AZITHROMYCIN 250 MG TABLET PO SCH (09:46)
[2020-10-13] MEDS: cilostazoL 50 MG TABLET PO SCH ×2 (09:46→23:10)
[2020-10-13] MEDS: GLIMEPIRIDE 4 MG TABLET PO SCH (09:46)
[2020-10-13] MEDS: ASCORBIC ACID 500 MG TABLET PO SCH ×2 (09:46→23:09)
[2020-10-13] MEDS: POTASSIUM GLUCONATE 500 MG TABLET PO SCH ×2 (09:47→23:09)
[2020-10-13] MEDS: cefTRIAXone 1,000 MG in SYRINGE 1 EACH IV SCH (09:47)
[2020-10-13] MEDS: CHOLECALCIFEROL 1,000 UNIT TABLET PO SCH (09:49)
[2020-10-13] MEDS: INSULIN REGULAR 100 UNIT/ML SUBCUT SCH ×4 (10:41→22:02)
[2020-10-13] MEDS ORDERED: AZITHROMYCIN INJ 250 MG in SODIUM CHLORIDE 0.9% 250 ML IV SCH (18:00)
[2020-10-13] MEDS: sitaGLIPtin 100 MG TABLET PO SCH (23:08)
[2020-10-13] MEDS: AMITRIPTYLINE 50 MG TABLET PO SCH (23:09)
[2020-10-13] MEDS: LOSARTAN 50 MG TABLET PO SCH (23:10)
[2020-10-14] MEDS: SODIUM CHLORIDE 0.9% 1,000 ML IV SCH (01:00)
[2020-10-14 04:55] LABS: Basophils # 0.1 10*3/uL (0.0-0.2); Basophils % 0.7 % (0.0-0.8); Eosinophils # 0.2 10*3/uL (0.0-0.87); Eosinophils % 2.2 % (0.00-10.9); Hemoglobin 13.7 GM/DL (14.0-18.0); Immature Granulocytes Absolute 0.07 #; Lymphocytes # 1.9 10*3/uL (1.4-4.0); Lymphocytes % 27.9 % (21.2-54.2); Mean Corpuscular HGB Conc 31.9 GM/DL (32-36); Mean Corpuscular Volume 98.6 FL (87-102); Mean Platelet Volume 9.7 FL (9.6-12.0); Neutrophils % 58.2 % (38.7-73.9); Platelet Count 220 T/CUMM (130-400); Red Blood Count 4.36 MC/CUMM (3.8-5.5); Red Cell Distribution Width 15.3 % (9.3-17.3); White Blood Count 6.9 T/CUMM (4-12)
[2020-10-14 05:07] LABS: Osmolality,Calculated 282.3 MOS/KG (273-304)
[2020-10-14] MEDS: LEVOTHYROXINE 50 MCG TABLET PO SCH (05:51)
[2020-10-14] MEDS: INSULIN REGULAR 100 UNIT/ML SUBCUT SCH ×4 (07:42→23:06)
[2020-10-14] MEDS: CHOLECALCIFEROL 1,000 UNIT TABLET PO SCH (08:47)
[2020-10-14] MEDS: ESCITALOPRAM 10 MG TABLET PO SCH (08:48)
[2020-10-14] MEDS: POTASSIUM GLUCONATE 500 MG TABLET PO SCH ×2 (08:48→22:48)
[2020-10-14] MEDS: GLIMEPIRIDE 4 MG TABLET PO SCH (08:48)
[2020-10-14] MEDS: DOCUSATE SODIUM 100 MG CAPSULE PO SCH ×2 (08:48→22:48)
[2020-10-14] MEDS: APIXABAN 5 MG TABLET PO SCH ×2 (08:48→22:49)
[2020-10-14] MEDS: AZITHROMYCIN 250 MG TABLET PO SCH (08:48)
[2020-10-14] MEDS: ASCORBIC ACID 500 MG TABLET PO SCH ×2 (08:48→22:48)
[2020-10-14] MEDS: cilostazoL 50 MG TABLET PO SCH ×2 (08:49→22:48)
[2020-10-14] MEDS: TAMSULOSIN 0.4 MG CAPSULE PO SCH ×2 (08:49→22:50)
[2020-10-14] MEDS: METOPROLOL SUCCINATE XL 25 MG TABLET PO SCH ×2 (08:49→22:49)
[2020-10-14] MEDS: PANTOPRAZOLE 40 MG TABLET PO SCH (08:49)
[2020-10-14] MEDS: cefTRIAXone 1,000 MG in SYRINGE 1 EACH IV SCH (08:49)
[2020-10-14] MEDS: sitaGLIPtin 100 MG TABLET PO SCH (22:49)
[2020-10-14] MEDS: MAGNESIUM CHLORIDE 64 MG TABLET PO SCH (22:49)
[2020-10-14] MEDS: AMITRIPTYLINE 50 MG TABLET PO SCH (22:49)
[2020-10-14] MEDS: LOSARTAN 50 MG TABLET PO SCH (22:49)
[2020-10-15] MEDS: LEVOTHYROXINE 50 MCG TABLET PO SCH (05:34)
[2020-10-15 06:46] LABS: Calcium 8.8 MG/DL (8.5-10.1); Osmolality,Calculated 279.4 MOS/KG (273-304)
[2020-10-15] MEDS: INSULIN REGULAR 100 UNIT/ML SUBCUT SCH ×4 (07:20→21:26)
[2020-10-15] MEDS: AZITHROMYCIN 250 MG TABLET PO SCH (08:00)
[2020-10-15] MEDS: DOCUSATE SODIUM 100 MG CAPSULE PO SCH ×2 (08:00→21:27)
[2020-10-15] MEDS: GLIMEPIRIDE 4 MG TABLET PO SCH (08:00)
[2020-10-15] MEDS: POTASSIUM GLUCONATE 500 MG TABLET PO SCH ×2 (08:01→21:28)
[2020-10-15] MEDS: CHOLECALCIFEROL 1,000 UNIT TABLET PO SCH (08:01)
[2020-10-15] MEDS: MAGNESIUM CHLORIDE 64 MG TABLET PO SCH ×2 (08:01→21:28)
[2020-10-15] MEDS: ESCITALOPRAM 10 MG TABLET PO SCH (08:01)
[2020-10-15] MEDS: cilostazoL 50 MG TABLET PO SCH ×2 (08:01→21:28)
[2020-10-15] MEDS: ASCORBIC ACID 500 MG TABLET PO SCH ×2 (08:01→21:27)
[2020-10-15] MEDS: PANTOPRAZOLE 40 MG TABLET PO SCH (08:02)
[2020-10-15] MEDS: APIXABAN 5 MG TABLET PO SCH ×2 (08:02→21:28)
[2020-10-15] MEDS: cefTRIAXone 1,000 MG in SYRINGE 1 EACH IV SCH (08:02)
[2020-10-15] MEDS: METOPROLOL SUCCINATE XL 25 MG TABLET PO SCH ×2 (08:02→21:27)
[2020-10-15] MEDS: TAMSULOSIN 0.4 MG CAPSULE PO SCH ×2 (08:02→21:27)
[2020-10-15] MEDS ORDERED: SALIVA SUBSTITUTE SPRAY 60 ML CAN SWISH/SWAL PRN (13:15)
[2020-10-15] MEDS: methylPREDNISolone SOD SUC 40 MG/1 ML VIAL IV SCH ×2 (14:15→21:25)
[2020-10-15] MEDS: sitaGLIPtin 100 MG TABLET PO SCH (21:28)
[2020-10-15] MEDS: AMITRIPTYLINE 50 MG TABLET PO SCH (21:28)
[2020-10-15] MEDS: LOSARTAN 50 MG TABLET PO SCH (21:28)
[2020-10-16] MEDS: methylPREDNISolone SOD SUC 40 MG/1 ML VIAL IV SCH ×3 (06:17→20:41)
[2020-10-16] MEDS: LEVOTHYROXINE 50 MCG TABLET PO SCH (06:19)
[2020-10-16] MEDS: cefTRIAXone 1,000 MG in SYRINGE 1 EACH IV SCH (08:11)
[2020-10-16] MEDS: CHOLECALCIFEROL 1,000 UNIT TABLET PO SCH (08:14)
[2020-10-16] MEDS: METOPROLOL SUCCINATE XL 25 MG TABLET PO SCH ×2 (08:14→20:40)
[2020-10-16] MEDS: MAGNESIUM CHLORIDE 64 MG TABLET PO SCH ×2 (08:14→20:40)
[2020-10-16] MEDS: DOCUSATE SODIUM 100 MG CAPSULE PO SCH ×2 (08:14→20:41)
[2020-10-16] MEDS: TAMSULOSIN 0.4 MG CAPSULE PO SCH ×2 (08:15→20:40)
[2020-10-16] MEDS: PANTOPRAZOLE 40 MG TABLET PO SCH (08:15)
[2020-10-16] MEDS: APIXABAN 5 MG TABLET PO SCH ×2 (08:15→20:41)
[2020-10-16] MEDS: AZITHROMYCIN 250 MG TABLET PO SCH (08:15)
[2020-10-16] MEDS: ESCITALOPRAM 10 MG TABLET PO SCH (08:15)
[2020-10-16] MEDS: POTASSIUM GLUCONATE 500 MG TABLET PO SCH ×2 (08:15→20:41)
[2020-10-16] MEDS: GLIMEPIRIDE 4 MG TABLET PO SCH (08:15)
[2020-10-16] MEDS: cilostazoL 50 MG TABLET PO SCH ×2 (08:16→20:40)
[2020-10-16] MEDS: INSULIN REGULAR 100 UNIT/ML SUBCUT SCH ×4 (08:16→20:42)
[2020-10-16] MEDS: ASCORBIC ACID 500 MG TABLET PO SCH ×2 (08:16→20:40)
[2020-10-16] MEDS ORDERED: cloNIDine 0.1 MG TABLET PO PRN (16:47)
[2020-10-16] MEDS: INSULIN GLARGINE 100 UNIT/ML SUBCUT SCH (18:14)
[2020-10-16] MEDS: sitaGLIPtin 100 MG TABLET PO SCH (20:41)
[2020-10-16] MEDS: AMITRIPTYLINE 50 MG TABLET PO SCH (20:41)
[2020-10-16] MEDS: LOSARTAN 50 MG TABLET PO SCH (20:41)
[2020-10-17] MEDS: LEVOTHYROXINE 50 MCG TABLET PO SCH (05:33)
[2020-10-17] MEDS: methylPREDNISolone SOD SUC 40 MG/1 ML VIAL IV SCH ×3 (05:33→21:31)
[2020-10-17] MEDS: DOCUSATE SODIUM 100 MG CAPSULE PO SCH ×2 (08:47→21:31)
[2020-10-17] MEDS: GLIMEPIRIDE 4 MG TABLET PO SCH (08:47)
[2020-10-17] MEDS: POTASSIUM GLUCONATE 500 MG TABLET PO SCH ×2 (08:48→21:31)
[2020-10-17] MEDS: TAMSULOSIN 0.4 MG CAPSULE PO SCH ×2 (08:48→21:31)
[2020-10-17] MEDS: ESCITALOPRAM 10 MG TABLET PO SCH (08:48)
[2020-10-17] MEDS: APIXABAN 5 MG TABLET PO SCH ×2 (08:48→21:31)
[2020-10-17] MEDS: ASCORBIC ACID 500 MG TABLET PO SCH ×2 (08:48→21:31)
[2020-10-17] MEDS: PANTOPRAZOLE 40 MG TABLET PO SCH (08:48)
[2020-10-17] MEDS: cilostazoL 50 MG TABLET PO SCH ×2 (08:48→21:31)
[2020-10-17] MEDS: CHOLECALCIFEROL 1,000 UNIT TABLET PO SCH (08:48)
[2020-10-17] MEDS: MAGNESIUM CHLORIDE 64 MG TABLET PO SCH ×2 (08:48→21:31)
[2020-10-17] MEDS: METOPROLOL SUCCINATE XL 25 MG TABLET PO SCH ×2 (08:49→21:31)
[2020-10-17] MEDS: INSULIN GLARGINE 100 UNIT/ML SUBCUT SCH (08:49)
[2020-10-17] MEDS: INSULIN REGULAR 100 UNIT/ML SUBCUT SCH ×4 (08:49→21:32)
[2020-10-17] MEDS: cefTRIAXone 1,000 MG in SYRINGE 1 EACH IV SCH (08:49)
[2020-10-17] MEDS: FUROSEMIDE 20 MG TABLET PO SCH (12:35)
[2020-10-17] MEDS: AMITRIPTYLINE 50 MG TABLET PO SCH (21:31)
[2020-10-17] MEDS: LOSARTAN 50 MG TABLET PO SCH (21:31)
[2020-10-17] MEDS: sitaGLIPtin 100 MG TABLET PO SCH (21:31)
[2020-10-18 06:03] LABS: Basophils % 0.1 % (0.0-0.8); Eosinophils % 0.1 % (0.00-10.9); Hematocrit 41.7 VOL% (42.0-52.0); Hemoglobin 13.8 GM/DL (14.0-18.0); Immature Granulocytes % 0.7 %; Immature Granulocytes Absolute 0.09 #; Lymphocytes % 14.8 % (21.2-54.2); Mean Corpuscular HGB Conc 33.1 GM/DL (32-36); Mean Corpuscular Volume 96.1 FL (87-102); Mean Platelet Volume 10.4 FL (9.6-12.0); Neutrophils % 75.3 % (38.7-73.9); Platelet Count 214 T/CUMM (130-400); Red Blood Count 4.34 MC/CUMM (3.8-5.5); White Blood Count 13.3 T/CUMM (4-12)
[2020-10-18] MEDS: methylPREDNISolone SOD SUC 40 MG/1 ML VIAL IV SCH ×2 (06:10→12:23)
[2020-10-18] MEDS: LEVOTHYROXINE 50 MCG TABLET PO SCH (06:12)
[2020-10-18 06:56] LABS: Calcium 8.5 MG/DL (8.5-10.1); Osmolality,Calculated 281.7 MOS/KG (273-304)
[2020-10-18] MEDS: INSULIN REGULAR 100 UNIT/ML SUBCUT SCH ×2 (07:30→12:23)
[2020-10-18] MEDS: METOPROLOL SUCCINATE XL 25 MG TABLET PO SCH (08:48)
[2020-10-18] MEDS: INSULIN GLARGINE 100 UNIT/ML SUBCUT SCH (08:48)
[2020-10-18] MEDS: APIXABAN 5 MG TABLET PO SCH (08:49)
[2020-10-18] MEDS: ASCORBIC ACID 500 MG TABLET PO SCH (08:49)
[2020-10-18] MEDS: cefTRIAXone 1,000 MG in SYRINGE 1 EACH IV SCH (08:50)
[2020-10-18] MEDS: ESCITALOPRAM 10 MG TABLET PO SCH (08:50)
[2020-10-18] MEDS: FUROSEMIDE 20 MG TABLET PO SCH (08:50)
[2020-10-18] MEDS: TAMSULOSIN 0.4 MG CAPSULE PO SCH (08:51)
[2020-10-18] MEDS: MAGNESIUM CHLORIDE 64 MG TABLET PO SCH (08:51)
[2020-10-18] MEDS: DOCUSATE SODIUM 100 MG CAPSULE PO SCH (08:51)
[2020-10-18] MEDS: POTASSIUM GLUCONATE 500 MG TABLET PO SCH (08:51)
[2020-10-18] MEDS: CHOLECALCIFEROL 1,000 UNIT TABLET PO SCH (08:51)
[2020-10-18] MEDS: GLIMEPIRIDE 4 MG TABLET PO SCH (08:51)
[2020-10-18] MEDS: cilostazoL 50 MG TABLET PO SCH (08:52)
[2020-10-18] MEDS: PANTOPRAZOLE 40 MG TABLET PO SCH (08:52)
[2020-10-18 11:53] VITALS: BP 127/79
[2020-10-20 22:16] LABS: Ehrlichia Chaffeensis (HME)IgG <1:64 titer (<1:64)
== END 2020-10-18 16:01 | disposition home or self-care (01) | DRG 193 ==
LOC: N.ED 11:45 → N.EDINP 15:50 → N.5E 16:55
PROVIDERS: ADMIT Family Medicine; ATTEND Family Medicine